=== PATIENT | male | born 1950 | race Caucasian/White ===

== ENCOUNTER 2018-11-17 04:47 | Inpatient (IN) ==
--- NOTE | 2018-11-03 13:24 | Anesthesiology Consultation ---
Date of Service November 03, 2018 Assessment & Plan (1) Encounter for pre-operative examination: Chart Review Chart Review: Acceptable Risk for Surgery (Pending surgeon-ordered PCP preop evaluation ([facility]; 11/10)) and Patient seen in Pre Admission Testing Teaching & Discussion Pre-Anesthesia Teaching/Discussion Notes: Instructed NPO after midnight before surgery,except medications with 15 cc of water. Medication instructions provided according to the PAT guidelines. History Surgery Operation Date: 11/17/18 15:00 Proposed Procedures p Right Total Knee Arthroplasty - Patrick Zaragoza DO Height/Weight Height: 5 ft 10.5 in Weight: 94 kg Allergies Allergy/AdvReac Type Severity Reaction Status Date / Time No Known Allergies Allergy Verified 10/29/18 15:30 Medications Home Medications Medication Instructions Recorded Confirmed Last Taken No Known Home Medications 10/29/18 10/29/18 Unknown Past Medical History Medical History Osteoarthritis Past Surgical History Surgical History History of colonoscopy Past Anesthesia History No Hx of Anesthesia Complications and No Family Hx of Anesthesia Complications History of PONV No Motion Sickness Screening History of Motion Sickness: No Social History Smoking Status: Current some day smoker tobacco type: cigarettes Smoking cigarettes per day: <1/4 PPD; INTERMITTENT USE X 50 YEARS Do You Dip or Chew Tobacco: No Hx Alcohol Use: Yes Alcohol type: other alcohol intake frequency: a few times a month Hx Substance Use: No substance use type: does not use Exercise / Class Metabolic Activity II 4-5 Yardwork/Stairs/Walk up hill Review of Systems Patient denies chest pain, shortness of breath, dyspnea on exertion, reflux, cough, wheezing, palpitations. Physical Exam Vital Signs VITALS BP 135/82 P 98 TEMP 98.5 SP02 94%RA RESP 18 PHYSICAL Full neck and c-spine range of motion. Full TMJ range of motion. TMD 3 finger breaths Mallampati Score 4 (small oral opening) Dentition: intact, lower right bridge to be replaced 11/05 (surgeon made aware), several caps all over Lungs: clear throughout to auscultation Cardiac: regular rate and rhythm, no murmurs noted Spine: normal Carotid arteries: negative bruit Extremities: no edema Testing Electrocardiogram Date: 03/25/19 NSR at 86bpm. Prolonged QT* Chest X-Ray Date: 11/03/18 Findings: + NAD Laboratory Results 11/03/18 13:30 Blood Type O Negative 11/03/18 13:30 Antibody Screen NEGATIVE 11/03/18 13:30 PT 11.3 Seconds (9.0-12.0) 11/03/18 13:30 INR 1.1 (0.9-1.1) 11/03/18 13:30 APTT 26.8 Seconds (21.0-31.0) 11/03/18 13:30 Hemoglobin A1c 5.8 % (4.5-5.6) H 11/03/18 13:30 Urine Color [place] 11/03/18 Unknown Urine Appearance Cloudy (Clear) H 11/03/18 Unknown Urine pH 5.0 (4.5-7.5) 11/03/18 Unknown Ur Specific [place] 1.033 (1.000-1.030) H 11/03/18 Unknown Urine Protein Trace (Negative) H 11/03/18 Unknown Urine Glucose (UA) Negative (Negative) 11/03/18 Unknown Urine Ketones Trace (Negative) H 11/03/18 Unknown Urine Nitrite Positive (Negative) H 11/03/18 Unknown Ur Leukocyte Esterase 1+ (Negative) H 11/03/18 Unknown Urine WBC (Auto) 1-5 /hpf (0-5) 11/03/18 Unknown Urine RBC (Auto) 5-10 /hpf (0-4) H 11/03/18 Unknown U Hyaline Cast (Auto) 1-5 /lpf (0-5) 11/03/18 Unknown U Epithel Cells (Auto) >30 /lpf (0-5) H 11/03/18 Unknown Urine Bacteria (Auto) Negative (Negative) 11/03/18 Unknown
--- NOTE | 2018-11-03 13:55 | XRay Report ---
XR chest Pre-admission PA/Lat CLINICAL HISTORY: Preoperative chest COMPARISON STUDY: No previous studies for comparison. FINDINGS: The cardiac and mediastinal contours are normal. There is no evidence of focal pulmonary co nsolidation. There is no evidence of failure. No pleural effusions are visualized.[ IMPRESSION: No active disease in the chest. Electronically signed by: Rudi Bustos M.D. 11/03/2018 1:54 PM
[2018-11-03 14:56] LABS: Basophils # (auto) 0.02 K/uL (0-0.2); Basophils % (auto) 0.3 %; Eosinophils # (auto) 0.12 K/uL (0-0.5); Eosinophils % (auto) 1.8 %; Hematocrit (blood only) 48.9 % (42-52); Hemoglobin 16.3 g/dL (14.0-18.0); Immature Granulocytes # (auto) 0.01 K/uL (0.00-0.02); Immature Granulocytes % (auto) 0.2 %; Lymphocytes % (auto) 30.3 %; Mean Corpuscular Hgb Conc 33.3 g/dL (32-36); Mean Corpuscular Volume 109.2 fL (80-100); Mean Platelet Volume 10.5 fL (7.4-10.4); Monocytes # (auto) 0.43 K/uL (0.11-0.59); Monocytes % (auto) 6.5 %; Neutrophils # (auto) 4.01 K/uL (1.4-6.5); Neutrophils % (auto) 60.9 %; Platelet Count 132 K/uL (130-400); RDW Coefficient of Variation 12.6 % (11.5-14.5); RDW Standard Deviation 50.4 fL (36.4-46.3); Red Blood Count 4.48 M/uL (4.7-6.1); White Blood Count 6.59 K/uL (4.8-10.8)
[2018-11-03 15:06] LABS: INR 1.1 (0.9-1.1); Partial Thromboplastin Time 26.8 Seconds (21.0-31.0); Prothrombin Time 11.3 Seconds (9.0-12.0)
[2018-11-03 15:11] LABS: Appearance Urine Cloudy (Clear); Bacteria Urine Automated Negative (Negative); Bilirubin Urine 2+ (Negative); Blood Urine Negative (Negative); Color Urine Orange; Epithelial Cell Urine Auto >30 /lpf (0-5); Glucose Urine UA Negative (Negative); Ketones Urine Trace (Negative); Leukocyte Esterase Urine 1+ (Negative); Nitrite Urine Positive (Negative); Protein Urine Trace (Negative); Specific Gravity Urine 1.033 (1.000-1.030); Urobilinogen Urine Negative (Negative)
[2018-11-03 15:13] LABS: Ictotest Urine Positive (Negative)
[2018-11-03 15:16] LABS: Estimated Average Glucose 120 mg/dl; Hemoglobin A1C 5.8 % (4.5-5.6)
[2018-11-03 15:22] LABS: Mucus Urine Present (None Prsent)
--- NOTE | 2018-11-16 10:33 | History & Physical Report ---
Date of Service November 16, 2018 Assessment & Plan (1) Degenerative joint disease of knee: I have indicated the patient for right total knee replacement. The risks, benefits and complications of surgery were explained to the patient which include but not limited to infection, acute blood loss, DVT/PE, injury to nerves, vessels, bone, soft tissue, arthrofibrosis, chronic pain, failure of the prosthesis, knee dislocation, leg length discrepancy, need for additional surgery, cardiac and pulmonary events and . The patient wished to proceed with surgery and informed consent was obtained at this time. We will plan for ASA 325mg BID post-operatively for DVT prophylaxis. Upon discharge the patient will be discharged home with home health services. Appropriate clearances by PCP were obtained. History of Present Illness Chief Complaint: Right knee pain/djd Primary Care Provider: Yordy Mosqueda The patient is a 68 year old male who presents with complaints of severe right knee pain and DJD. The patient has failed outpatient conservative treatments to this point which included NSAIDs, IA hyruonic and corticosteroid injections, jesús e exercise, walking program. The patient's pain and limited function have progressed to the point where they severely hinder their activities of daily living and they no longer tolerate exercise programs. They are requesting to proceed with total knee replacement surgery. Allergies Allergy/AdvReac Type Severity Reaction Status Date / Time No Known Allergies Allergy Verified 11/17/18 05:28 Home Medications Home Medications Medication Instructions Recorded Confirmed Type No Known Home Medications 10/29/18 11/17/18 History Past Med/Surg History Medical History Osteoarthritis Surgical History History of colonoscopy Social History Preferred Language: Kiswahili Communication Ability: Effective Field Operations Manager Required: No Beliefs That Will Affect Care: None Current Living Situation: Alone Other Information That Helps Us Care for You: No Feels Safe at Home: Yes Safety Concerns: Feels Safe At This Time Smoking Status: Current some day smoker Hx Alcohol Use: Yes Hx Substance Use: No Physical Exam Physical Exam: RLE NVSI +EHL/FHL/TA/GS SILT grossly, +2 DP pulse, compartments soft NT, painful ROM 0-130 with crepitus. Genu varum. Constitutional: WD/WN, vitals as above Eyes: PERRL, conjunctivae normal, anicteric sclerae ENMT: external ear and nose normal, oropharynx normal Neck: trachea midline, no thyromegaly Respiratory: normal respiratory effort, lungs clear to auscultation Cardiovascular: RRR, no murmur, no edema Gastrointestinal (Abdomen): normal bowel sounds, soft, nontender, no hepatosplenomegaly Musculoskeletal: no cyanosis or clubbing, extremities motor strength 5/5 Skin: no rashes, warm and dry Neurologic: patellar DTR's 2+ bilat, sensation intact Psychiatric: A+Ox3, euthymic affect Lymphatic: no cervical or axillary lymphadenopathy Results & Data Diagnostic Findings Multiple views of the knee demonstrates severe tricompartmental DJD with complete loss of the medial joint space. +osteophytes, +sclerosis, +subchondral cysts.
[2018-11-17] MEDS ORDERED: CeleBREX 200 MG CAP PO SCH (06:00)
[2018-11-17] MEDS ORDERED: TRANEXAMIC ACID 1,000 MG **IV Pre-op IV SCH (06:00)
[2018-11-17] MEDS ORDERED: CEFAZOLIN 2000MG 2,000 MG/15 ML SYR IV SCH (06:00)
[2018-11-17] MEDS ORDERED: ACETAMINOPHEN 500 MG TAB PO SCH (06:00)
[2018-11-17] MEDS ORDERED: METOCLOPRAMIDE HCL 10 MG TABLET PO SCH (06:00)
[2018-11-17] MEDS ORDERED: FAMOTIDINE 20 MG TAB PO SCH (06:00)
[2018-11-17] MEDS ORDERED: dexAMETHasone 4 MG TAB PO SCH (06:00)
[2018-11-17] MEDS ORDERED: LR 500ML BOLUS, THEN 15ML/HR IV SCH (06:00)
[2018-11-17] MEDS ORDERED: BUPIVACAINE 0.5 % 5 MG/1 ML PF 10ML VIAL ONE (06:26)
[2018-11-17] MEDS ORDERED: ROPIVACAINE 0.5% 5 MG/ML 30 ML VIAL ONE (06:26)
[2018-11-17] MEDS ORDERED: MIDAZOLAM HCL 1 MG/ML 2ML VIAL ONE ×2 (06:40→08:15)
[2018-11-17] MEDS ORDERED: PROPOFOL IV EMULSION 10 MG/ML 20 ML VIAL IV ONE (06:40)
[2018-11-17] MEDS ORDERED: LIDOCAINE HCL 2% 2 ML VIAL/AMP(20MG/ML) INFIL ONE (06:40)
[2018-11-17] MEDS ORDERED: fentaNYL citrate 100 MCG/2 ML VIAL ONE (06:41)
[2018-11-17] MEDS ORDERED: POVIDONE-IODINE OP SOLN 30 ML BTL ONE (06:42)
[2018-11-17] MEDS ORDERED: BACITRACIN INJ 50,000 UNIT VIAL ONE (06:42)
[2018-11-17] MEDS ORDERED: ePHEDrine sulfate 50 MG/ML AMP IV PRN (06:48)
[2018-11-17] MEDS ORDERED: ATROPINE SULFATE 0.1 MG/ML 10ML SYR IV PRN (06:48)
--- NOTE | 2018-11-17 06:49 | History & Physical Bridge Note ---
Date of Service November 17, 2018 History & Physical Bridge Note I have examined the patient, reviewed the History & Physical and in the interval since the performance of the History & Physical I have noted the following changes of clinical significance: no changes noted
[2018-11-17] MEDS: ORTHO JOINT ANESTHETIC ONE ×2 (07:55→15:44)
[2018-11-17] MEDS ORDERED: ROPIVACAINE 0.5% HCL/PF 150 MG, BUPIVACAINE 0.5% MPF 30 ML, EPINEPHrine 30MG/30ML (OR U... INFIL SCH (08:00)
[2018-11-17] MEDS: TRANEXAMIC ACID 1,000 MG **IV Intra-op IV SCH ×2 (08:40→10:55)
--- NOTE | 2018-11-17 08:42 | Post Operative Brief Note ---
Immediate Post Op Note v1 Date of Surgery November 17, 2018 Pre & Post Diagnosis Operation Date: 11/17/18 07:00 Pre-Op Diagnosis: RIGHT KNEE OSTEOARTHRITIS Post-Op Diagnosis: RIGHT KNEE OSTEOARTHRITIS Procedure Operation Date: 11/17/18 07:00 Actual Procedures p Right Total Knee Arthroplasty(Right) - Patrick Zaragoza DO Surgeon Patrick Zaragoza DO Core Placer Norman Pope Estimated Blood Loss 45 Findings Consistent with Post-Op Diagnosis Fluids 1500 cc LR Specimens proximal tibia, distal femur bone fragments Anesthesia Type Spinal MAC Complications none Disposition Disposition: Recovery Room Overlapping Procedure I was present for: the critical portions of procedure. I was immediately available: during the entire case. Back up surgeon: was not required during procedure.
--- NOTE | 2018-11-17 09:00 | Operative Report ---
Post Operative Report Pre & Post Diagnosis Operation Date: 11/17/18 07:00 Pre-Op Diagnosis: RIGHT KNEE OSTEOARTHRITIS Post-Op Diagnosis: RIGHT KNEE OSTEOARTHRITIS Procedure Operation Date: 11/17/18 07:00 Actual Procedures p Right Total Knee Arthroplasty(Right) - Patrick Zaragoza DO Surgeon Patrick Zaragoza DO Firer Retort Norman Pope Estimated Blood Loss 45 Findings Consistent with Post-Op Diagnosis Fluids 1500 cc LR Specimens proximal tibia, distal femur bone fragments Anesthesia Type Spinal MAC Complications none Disposition Disposition: Recovery Room Indications The patient is a 68-year-old male presents with long history of severe right knee tricompartmental DJD and failed outpatient conservative treatments including NSAIDs, bracing, injections and home walking/exercise program. The patient's symptoms have progressed to the point where it has been difficult to perform normal activities of daily living. I have indicated the patient for a right total knee arthroplasty, the risks and benefits and complications of the procedure include but are not limited to infection bleeding damage to bone, nerves, vessels, surrounding soft tissue, blood clots, loss of function, leg length discrepancy, dislocation, failure of the components, need for additional surgery and . The patient wished to proceed with surgery at this time and informed consent was obtained. Appropriate clearances were obtained. Description of Procedure Following induction of spinal anesthesia, a tourniquet was applied to the proximal aspect of the thigh and the patient's right leg was prepped and draped in the usual sterile manner. A timeout was performed, patient identified and site south confirmed. Appropriate pre-operative IV antibiotics were given. The limb was exsanguinated with an Esmarch bandage and tourniquet was inflated to 300 mmHg. A longitudinal midline incision was made over the anterior knee. Subcutaneous tissue was sharply dissected down to fascia. Electrocautery was used for hemostasis. Next a parapatellar arthrotomy was performed. Patella was everted and the knee was flexed. A Brooks retractor was used to expose the synovium above on the anterior aspect of the femur and removed down to bone. Next, the anterior fat pad was removed to aid in visualization. The medial face of the tibia was cleared of soft tissue first with a Bovie and a strickland elevator. This tissue was retracted posteriorly using a blunt Hohmann. Next, the extra-medullary tibial cutting guide was placed to the anterior aspect of the tibia. The tibia resection level was set taking 2mm from the defective tibial condyle. Resection depth was once again confirmed with berny wing. The medial and lateral collateral ligament was protected with two Hohmann retractors. The tibia guide was removed and proximal tibial bone fragment removed utilizing straight osteotome, electrocautery and Florentin. Next, the distal femur intramedullary canal was accessed utilizing the step drill. The intramedullary distal femur cutting guide was placed into the canal and pinned into place. The distal femur was cut on the 5 degree +2 setting. Next the cutting guide was removed and the femur was sized. Care was taken to ensure appropriate citrus fruit packer all rotation and 3 degree holes were drilled. A size 9 4-in-1 cutting block was placed on the distal end of the femur and secured into place with two short headed screws. Two bent Hohmann retractors were placed to protect the medial and lateral collateral ligaments. The oscillating saw was used to cut anterior, posterior, anterior chamfer and posterior chamfer. The four and one cutting block was removed and bone fragments excised. Laminar banking services advisor was placed laterally and the ACL and PCL were removed followed by the medial meniscus and posterior medial osteophytes. Aquamantys was utilized for any posterior medial bleeders and Orthomix injected into the posterior medial capsule. A laminar banking services advisor was then placed in the medial compartment and the lateral meniscus and posterior osteophytes were removed. Aquamantys was utilized for any posterior lateral bleeders and Orthomix injected into the posterior lateral capsule. Next, drop dario and spacer block were placed with the leg in flexion and extension to assess alignment and flexion/extension gaps. Next, the proximal tibia was assessed and two bent Hohmans were placed medial and lateral to aid in visualization. The appropriate tibia size and rotation was selected and a size G tibial plate was pinned into place with appropriate rotation. Preparation of the tibia was completed utilizing the matching tibial drill and broach. I then turned my attention back to the distal femur in a trial femoral component was impacted into place. Appropriate femoral width was assessed and selected. Next the femur PS box cut guide was placed and cut made with the reciprocal saw and the PS box provisional placed. A trial size 12 tibia articular tray was placed and varus-valgus balance assessed in 0 degrees of extension and 30, 60 and 90 degrees of flexion, sequential increase in tibial articular tray size was performed. A final tibial articular surface size 14 was chosen. Assess was gained to the patella and caliper utilized to measure width. The patella reamer was utilized and remaining bone removed with oscillating saw. A size 31 asymmetric patella button was selected and the patella pegs drilled. Trial patella button was placed and tracking was assessed. The knee was found to be well balanced, well aligned with excellent patella tracking. The trials were removed and final components were obtained and assembled. The knee was irrigated copiously with sterile saline solution mixed with bacitracin. Access to the proximal tibia was once again obtained utilizing to the Hohmans and the proximal tibia and distal femur were dried with lap sponges. The final components were cemented into place and all excess cement was removed. A trial tibial articular surface was placed while cemented hardened. Knee stability was once again assessed and the final component inserted. The knee was injected with the remaining Orthomix which includes a combination of Ropivicaine 0.5% 150mg, Bupivicaine 0.5%/Epinephrine 1:200,000 30ml, Toradol 30mg, Dexamethasone 4mg, Ketamine 10mg, Clonidine 100mcg and NSS 30ml solution and irrigated once more with sterile saline solution mixed with bacitracin. The capsulotomy was closed with #1 Vicryl followed by subcutaneous closure with 2-0 Vicryl suture and a 3-0 V-lock suture. Skin closure was performed using Prineo dressing followed by Migue, 4 x 4s and filippo wrap. Tourniquet was deflated at 102 minutes. The patient tolerated the procedure well and was taken to the PACU in stable condition. Due to the complex nature of the procedure, the entire surgery was performed with the operational assistance of Norman Pope PA-C. The seismic survey assistant, under direct supervision, was involved in the actual performance of all aspects of the surgical procedure including patient positioning, hemostasis, tissue retraction, instrument management and wound closure. I attest to the content of the Intraoperative Record and any orders documented therein. Any exceptions are noted below.
--- NOTE | 2018-11-17 09:45 | XRay Report ---
XR knee RT 2V routine CLINICAL HISTORY: Surgical Post Op postoperative evaluation COMPARISON: None. DISCUSSION: Anatomic alignment post total right knee arthroplasty. Good contact between prosthetic an d underlying bone. Expected postoperative soft tissue change IMPRESSION: Anatomic alignment post total right knee arthroplasty. The above report was generated using voice recognition software. It may contain grammatical, syntax or spelling errors. Electronically signed by: Lincoln Gamble M.D. 11/17/2018 9:44 AM
--- NOTE | 2018-11-17 09:53 | Anesthesiology Progress Note ---
Date of Service November 17, 2018 Anesthesia Post Procedure Vital Signs Vital Signs: Temp Pulse Pulse Resp BP Pulse Ox 11/17/18 09:40 36.5 C 90 19 140/82 95 11/17/18 09:30 88 21 131/80 97 11/17/18 09:23 36.3 C L 93 H 18 126/75 97 11/17/18 05:30 36.8 C 76 20 139/94 97 Notes Mental Status: alert / awake / arousable Patient Amnestic to Procedure: Yes Nausea / Vomiting: adequately controlled Pain: adequately controlled Airway Patency, RR, SpO2: stable & adequate BP & HR: stable & adequate Hydration State: stable & adequate Anesthetic Complications: no major complications apparent and Pt Satisfied with anesthetic care
[2018-11-17] MEDS ORDERED: HYDROmorphone INJ 0.5 MG/0.5 ML SYR IV PRN (10:10)
[2018-11-17] MEDS ORDERED: OXYCODONE HCL IR 5 MG TAB (IMMEDIATE RELEASE) PO PRN (10:10)
[2018-11-17] MEDS ORDERED: NALOXONE HCL 0.4 MG/1 ML VIAL/CARP IV PRN (10:10)
[2018-11-17] MEDS ORDERED: ONDANSETRON INJ 2 MG/ML 2 ML VIAL IV PRN (10:10)
[2018-11-17] MEDS ORDERED: BISACODYL 10 MG SUPP PR PRN (10:10)
[2018-11-17] MEDS ORDERED: METOCLOPRAMIDE HCL INJ 5 MG/ML 2 ML VIAL IV PRN (10:10)
[2018-11-17] MEDS ORDERED: MAGNESIUM HYDROXIDE SUSP 30 ML UDC PO PRN (10:10)
[2018-11-17] MEDS: MULTIVITAMIN TAB PO SCH (10:56)
[2018-11-17] MEDS: SODIUM CHLORIDE 0.9% 1000ML 1,000 ML IV SCH ×2 (10:56→21:10)
[2018-11-17] MEDS: DOCUSATE SODIUM 100 MG CAP PO SCH ×2 (10:56→20:46)
[2018-11-17] MEDS: KETOROLAC TROMETHAMINE 15 MG/ML VIAL IV SCH ×3 (10:57→22:00)
[2018-11-17] MEDS: CEFAZOLIN 2000MG 2,000 MG/15 ML SYR IV SCH ×2 (14:05→22:01)
[2018-11-17] MEDS: ACETAMINOPHEN 500 MG TAB PO SCH ×2 (14:05→22:00)
--- NOTE | 2018-11-17 16:53 | Orthopedic Progress Note ---
Date of Service November 17, 2018 Assessment & Plan (1) Degenerative joint disease of knee: s/p R TKA -ancef x 24 -DVT ppx - SCDs, TEDS, ASA BID -WBAT RLE -PT/OT -PO XR - well aligned well fixed prothesis without fracture/dislocation -am labs -DC planning - Home with HH Subjective Post Operative Progress Note Patient seen sitting up in bed, comfortable, denies complaints, pain well controlled, no acute issues. Physical Exam Vital Signs (Past 24 Hours): Last Vital Signs Temp 36.8 C 11/17/18 15:05 Pulse 91 H 11/17/18 15:05 Resp 18 11/17/18 15:05 BP 143/79 H 11/17/18 15:05 Pulse Ox 93 11/17/18 15:05 Physical Exam: Limited secondary to patient spinal anesthesia slowly wearing off, +2DP pulse, SILT grossly, decreased motor strength TA/EH, compartments soft NT, dressing CDI Constitutional: WD/WN, vitals as above
[2018-11-17] MEDS ORDERED: SENNA 8.6 MG TAB PO SCH (21:00)
[2018-11-18] MEDS: KETOROLAC TROMETHAMINE 15 MG/ML VIAL IV SCH (04:38)
[2018-11-18 06:04] LABS: Hematocrit (blood only) 39.2 % (42-52); Hemoglobin 13.5 g/dL (14.0-18.0); Mean Corpuscular Hgb Conc 34.4 g/dL (32-36); Mean Corpuscular Volume 105.7 fL (80-100); RDW Coefficient of Variation 12.5 % (11.5-14.5); RDW Standard Deviation 48.3 fL (36.4-46.3); Red Blood Count 3.71 M/uL (4.7-6.1); White Blood Count 9.86 K/uL (4.8-10.8)
[2018-11-18] MEDS: ACETAMINOPHEN 500 MG TAB PO SCH ×2 (06:18→14:15)
[2018-11-18 06:23] LABS: BUN Creatinine Ratio 28.8 (10-20); Calcium 8.2 mg/dl (8.5-10.1); Creatinine Clr Calc Pharmacy 145.7 ml/min; Est GFR (African American) 122.4; Est GFR (Non-African American) 105.6; Potassium 3.7 mmol/L (3.5-5.1)
[2018-11-18 06:26] LABS: Mean Platelet Volume 10.2 fL (7.4-10.4); Platelet Count 96 K/uL (130-400); Platelet Estimate Decreased (Normal)
--- NOTE | 2018-11-18 08:04 | Orthopedic Progress Note ---
Date of Service November 18, 2018 Assessment & Plan (1) Degenerative joint disease of knee: R TKA POD#1 -ancef x 24 -DVT ppx - SCDs, TEDS, ASA BID -WBAT RLE -PT/OT -am labs - Hgb 13.5 -DC planning - Home with HH -If patient is progressing well with his physical therapy plan for discharge to home today. Patient seen and examined, agree with above assessment and plan. Subjective Post operative progress note Patient is lying in bed currently. He is awake and alert and without complaints. He did state that he did not sleep well. Pain is controlled at the present time and he does state that he has some mild discomfort over the top of the knee. He also states that he had trouble moving his right foot after the surgery and in the evening however that has returned and he is not having any problems with dorsiflexion or plantarflexion. He denies shortness of breath, chest pain, lightheadedness. He states he is having home health services upon discharge and is hoping to go home today. Physical Exam Vital Signs (Past 24 Hours): Last Vital Signs Temp 36.5 C 11/18/18 07:21 Pulse 80 11/18/18 07:21 Resp 17 11/18/18 07:21 BP 143/83 H 11/18/18 07:21 Pulse Ox 95 11/18/18 07:21 Physical Exam: Dressings are clean, dry, and intact. Calves are soft nontender. Neurovascular is intact. Toes are mobile. He has good dorsiflexion and plantarflexion of the right foot. RLE NVSI +EHL/FHL/TA/GS SILT grossly, +2 DP pulse, compartments soft NT, dressing cdi.
--- NOTE | 2018-11-18 08:08 | Anesthesiology Progress Note ---
Date of Service November 18, 2018 Anesthesia Post Procedure Vital Signs Vital Signs: Temp Pulse Pulse Pulse Pulse Resp BP 11/18/18 07:21 36.5 C 80 17 143/83 H 11/18/18 03:27 36.8 C 86 16 147/83 H 11/17/18 23:14 36.6 C 100 H 16 151/87 H 11/17/18 19:35 36.7 C 97 H 18 136/77 11/17/18 15:05 36.8 C 91 H 18 143/79 H 11/17/18 12:55 84 16 134/80 11/17/18 11:58 78 16 155/93 H 11/17/18 11:03 73 16 152/91 H 11/17/18 10:30 73 16 146/96 H 11/17/18 10:00 36.6 C 82 20 113/83 11/17/18 09:50 85 15 133/79 11/17/18 09:40 36.5 C 90 19 140/82 11/17/18 09:30 88 21 131/80 11/17/18 09:23 36.3 C L 93 H 18 126/75 Pulse Ox 11/18/18 07:21 95 11/18/18 03:27 95 11/17/18 23:14 97 11/17/18 19:35 94 11/17/18 15:05 93 11/17/18 12:55 96 11/17/18 11:58 94 11/17/18 11:03 97 11/17/18 10:30 95 11/17/18 10:00 2 L 11/17/18 09:50 93 11/17/18 09:40 95 11/17/18 09:30 97 11/17/18 09:23 97 Pain Intensity Right Knee: Pain Intensity: 0 Notes Mental Status: alert / awake / arousable and participated in evaluation Patient Amnestic to Procedure: Yes Nausea / Vomiting: adequately controlled Pain: adequately controlled Airway Patency, RR, SpO2: stable & adequate BP & HR: stable & adequate Hydration State: stable & adequate Neuraxial Anesthesia: was administered and sensory block resolved Anesthetic Complications: no major complications apparent and Pt Satisfied with anesthetic care
[2018-11-18] MEDS: MULTIVITAMIN TAB PO SCH (08:48)
[2018-11-18] MEDS: DOCUSATE SODIUM 100 MG CAP PO SCH (08:48)
[2018-11-18] MEDS ORDERED: ASPIRIN 325 MG ECTAB PO SCH (09:00)
[2018-11-18] MEDS ORDERED: CeleBREX 200 MG CAP PO SCH (21:00)
--- NOTE | 2018-11-18 23:18 | Discharge Summary ---
Date of Service November 18, 2018 Admission HPI Per Admitting Provider The patient is a 68 year old male who presents with complaints of severe right knee pain and DJD. The patient has failed outpatient conservative treatments to this point which included NSAIDs, IA hyruonic and corticosteroid injections, home exercise, walking program. The patient's pain and limited function have progressed to the point where they severely hinder their activities of daily living and they no longer tolerate exercise programs. They are requesting to proceed with total knee replacement surgery. Principal Diagnosis Right total knee replacement Discharge Exam RLE NVSI +EHL/FHL/TA/GS SILT grossly, +2 DP pulse, compartments soft NT, dressing cdi. Constitutional WD/WN, vitals as above Eyes PERRL, conjunctivae normal, anicteric sclerae ENMT external ear and nose normal, oropharynx normal Neck trachea midline, no thyromegaly Respiratory normal respiratory effort, lungs clear to auscultation Cardiovascular RRR, no murmur, no edema Gastrointestinal (Abdomen) normal bowel sounds, soft, nontender, no hepatosplenomegaly Musculoskeletal no cyanosis or clubbing, extremities motor strength 5/5 Skin no rashes, warm and dry Neurologic patellar DTR's 2+ bilat, sensation intact Psychiatric A+Ox3, euthymic affect Lymphatic no cervical or axillary lymphadenopathy Discharge Data Allergies Allergy/AdvReac Type Severity Reaction Status Date / Time No Known Allergies Allergy Verified 11/17/18 05:28 Consultations 11/17/18 10:10 Consult Case Management - Discharge Planning Routine Procedures Performed Operation Date: 11/17/18 07:00 Actual Procedures p Right Total Knee Arthroplasty(Right) - Patrick Zaragoza DO Ordered Studies 11/17/18 05:00 US - OR guided needle placemen Routine Hospital Course (1) Degenerative joint disease of knee: The patient is a 68 -year-old male who presents with long standing history of s evere right knee DJD and failed outpatient conservative treatments including NSAIDs, bracing, injections and home walking/exercise program. The patient's symptoms have progressed to the point where it has been difficult to perform even normal activities of daily living. I indicated the patient for a right total knee arthroplasty, the risks, benefits and complications of the procedure include but not limited to infection, bleeding, damage to bone, nerves, vessels, surrounding soft tissue, may develop blood clots, loss of function, leg length discrepancy, dislocation, failure of the components, loosening of the components, the need for additional surgery and . The patient wished to proceed with surgery at this time and informed consent was obtained. Hospital Course: On 11/17/18 the patient was taken to the operating room, adequate anesthesia administered and underwent a right total knee arthroplasty. The patient tolerated the procedure well and was taken to the PACU in stable condition. Post-operatively the patient was started on a DVT ppx medication and given appropriate IV antibiotics. Consults were placed to physical therapy, occupational therapy and case management. On POD#1, the patient did well overnight and their pain was well controlled. Labs were drawn and the Hgb was 13.5. The patient progressed well with PT. Dressings were changed at this time and the incision was clean, dry and intact. The patients hospital stay was relatively uneventful and they were deemed stable by the orthopedic team and consultants to be discharged home with HH on 11/18/18. Discharge Instructions: Upon discharge the patient may weight bear as tolerates through their operative extremity. They were instructed to keep the incision clean and dry at all times. The patient may shower but should not submerge the incision, avoid bathing, pools and hot tubes. The patient was given a script for pain medication and should take as instructed. The patient was given a script for DVT ppx ASA 325 BID and should take as directed. The patient was instructed to not drive or travel for long distances until cleared to do so. If the patient develops any symptoms of fevers, chills, nausea, vomiting, increased redness, swelling, pain or drainage from the surgical site, they should notify the office and/or proceed to the nearest emergency room. The patient should follow up in 10-14 days after surgery for their routine post-operative follow-up appointment and should call the office to confirm the date and time. R TKA POD#1 -ancef x 24 -DVT ppx - SCDs, TEDS, ASA BID -WBAT RLE -PT/OT -am labs - Hgb 13.5 -DC planning - Home with HH -If patient is progressing well with his physical therapy plan for discharge to home today. Patient seen and examined, agree with above assessment and plan. Total Time Total Time Spent Total Time Spent (In Minutes): >60 minutes Total Time Includes: Examination of the Patient, Discharge Planning, Medication Reconciliation and Communication With Other Providers Discharge Plan Discharge Items Patient Disposition: Home - Home Health Services Reason For Visit: RIGHT KNEE OSTEOARTHRITIS Discharge Diagnosis: Right total knee replacement Condition: Good Discharge Goals: Decrease discomfort, Improve disease control, Improve function, Increase independence and Therapeutic intervention Activity: Per 'Additional Instructions' section Lifting: Wait until after follow-up appointment Bathing Comment: No bathing, pools or hot tubs Sexual Activity: Wait until after follow-up appointment Exercise/Sports: Wait until after follow-up appointment Driving/Machine Use Comment: No driving till cleared by your surgeon Weightbearing: Right weightbearing Non-emergency contact: Primary Care Provider and Surgeon Call non-emergency contact if: you have any medication questions, your symptoms worsen, your pain is not controlled, your pain is worsening, your pain is unusual for you, your pain is concerning for you, you have a fever, your temperature is above 101, your wound has increased redness, your wound has increased drainage and your wound pain has increased Follow-up/Referrals: Yordy Mosqueda M.D. [Primary Care Provider] - Diet: Regular Addtl Provider Instructions: ACTIVITY RECOMMENDATIONS: SELF CARE INSTRUCTIONS AFTER TOTAL KNEE REPLACEMENT A. You may need to continue a physical therapy program after discharge from the hospital. There are several options available to you. Your doctor will assist you in selecting the best one for you. 1. An out-patient facility 2 to 3 times a week for therapy or home therapy. 2. Continue working on all exercises taught to you in the hospital. Your goals should be to increase bending of your knee to 90 degrees and beyond and to fully straighten your knee. B. You may progress at your own pace from walking with a walker or crutches to a cane; then to no assistive devices. C. Make walking a part of your daily routine. Be up as much as comfortable with rest periods throughout the day. Rest with leg elevation is very important. Use the ice wrap frequently for the first 3-4 weeks. D. There are no restrictions on activities. You may ride in a car, shop, participate in transitions rn care coordinator and all social activities. E. Wear the long elastic stockings (THI hose) 20 hours a day for 2 weeks after surgery. They can be removed several times a day for laundering and for a bath. F. You may shower, no tub baths until cleared by your doctor. SPECIAL CARE INSTRUCTIONS: VERY IMPORTANT TO READ AND REVIEW A. There are a few signs you need to watch for after you are home. Call [facility] if you notice any of the followin. Increased severe knee pain. Some pain is expected especially when you exercise. 2. Increased swelling in your leg or knee; pain or swelling of the calf muscle in either lower leg. 3. Any fluid drainage from the incision. 4. Shortness of breath or chest pain. B. Please call [facility] at if you have any concerns or questions about your operation or recovery. The doctor or his nurse will return your call promptly. C. You must take antibiotics before dental work, bladder, bowel or other surgery. Your doctor will provide you with a permanent care to carry describing this precaution. IMPORTANT: * REMEMBER TO TAKE ASPIRIN, 325 MG, TWICE DAILY FOR 4 WEEKS UNLESS OTHERWISE DIRECTED. THIS IS YOUR BLOOD THINNER. * HIGH RISK PATIENTS MAY BE PRESCRIBED A STRONGER BLOOD THINNER. THIS WILL BE PROVIDED AT DISCHARGE. * CALL IF INCREASED PAIN, REDNESS, DRAINAGE OR FEVER GREATER THAT 101. * WEAR THI HOSE 20 HOURS PER DAY FOR 2 WEEKS. *DERMABOND Prineo- This is a mesh tape dressing that is covered with glue. It should remain in place until the incision is properly healed, usually 10-14 days. This dressing is designed to naturally slough off. You may trim the excess mesh tape as it peels off. Incision may be briefly wet in a shower. Dry immediately by blotting with a clean, dry towel. Do not bath or swim until instructed by your doctor. Do not scratch, rub, or pick at the dressing. Do not apply any topical ointments or lotions until dressing is completely removed and/or instructed by your doctor. There may be a small piece of suture material at one end of your incision. Do not pull or trim this. If it is bothersome or catching on clothing, you may cover it with a band-aid. IF INCISION IS LEAKING THROUGH DRESSING, CALL THE OFFICE . FOLLOW UP VISIT: If appointment is not already scheduled: Please call [facility] to make a follow-up appointment for 2 weeks after your surgery at . Prescriptions: New acetaminophen [Pain Reliever] 500 mg Tablet 1,000 mg PO Q8 PRN (Reason: pain) Qty: 90 RF: 0 aspirin 325 mg Tablet,Delayed Release (Dr/Ec) 325 mg PO BID 28 Days Qty: 56 RF: 0 celecoxib [Celebrex] 200 mg Capsule 200 mg PO BID PRN (Reason: pain) Qty: 28 RF: 0 oxycodone 5 mg Tablet 5 mg PO Q6H MDD 6 tabs PRN (Reason: pain) Qty: 30 RF: 0 sennosides [Senokot] 8.6 mg Tablet 17.2 mg PO HS PRN (Reason: constipation) Qty: 28 RF: 0 Continued No Known Home Medications RF: 0 Stand-Alone Forms: [employer], [facility] [employer]/Other Patient Handouts: Surgery Prevent DVT After Discharge Orders: Discharge Order (Routine); Ordered 11/18/18 Ordered By: Norman Pope Admission Data Admit Date/Time: 11/17/18 09:21 Attending Provider: Patrick Zaragoza Admit Provider: Patrick Zaragoza Primary Care Provider: Yordy Mosqueda Service: Surgical Services Other Interventions: Discharge Summary Assessment (RN) Last Done: 11/18/18 14:04 DC Date/Time DO NOT enter until pt leaves facility: 11/18/18 14:45
== END 2018-11-18 14:45 | disposition home health service (06) | DRG 470 ==
LOC: ASU 04:47 → 3E 09:21

== ENCOUNTER 2020-11-21 10:21 | Inpatient (IN) ==
--- NOTE | 2020-11-03 16:04 | PAT Medication Instructions ---
Medication Instructions Date of Service November 03, 2020 Home Medications escitalopram oxalate 10 mg PO QAM fiber 1 tab PO QAM furosemide 40 mg PO QAM multivitamin 1 tab PO QAM nadolol 20 mg PO QAM sennosides [Senokot] 17.2 mg PO QAM spironolactone 25 mg PO QAM DO NOT take the morning of surgery fiber 1 tab PO QAM furosemide 40 mg PO QAM multivitamin 1 tab PO QAM sennosides [Senokot] 17.2 mg PO QAM spironolactone 25 mg PO QAM Take morning of surgery With a small sip of water, OTHERWISE NOTHING TO EAT OR DRINK AFTER MIDNIGHT: escitalopram oxalate 10 mg PO QAM nadolol 20 mg PO QAM Other Notes If you have any questions please call us at [phone] or [phone] or [phone] or [phone]
--- NOTE | 2020-11-09 13:19 | Anesthesiology Consultation ---
Date of Service November 09, 2020 Assessment & Plan (1) Encounter for pre-operative examination: Chart Review Chart Review: Pending: Refer to Additional Notes / Consult section (pending surgeon ordered PCP clearance and preop Covid testing ) and Patient seen in Pre Admission Testing Awaiting surgeon ordered PCP clearance 11/11/20- did write note re: t hrombocytopenia to PCP to address at preop appt. Also sent pt's coags and liver enzymes (pt has cirrhosis) Pt requests no IV access in back of the hand area Per PAT appt on 11/09/20, pt resides in [facility]- travels to [facility]. Denies any other travel or large group gatherings. No known Covid positive contacts or Covid related symptoms. Wears mask in public. No known Covid infection in the past 90 days. Preop Covid testing scheduled 11/16/20= will await results. Educated on importance of self quarantining, social distancing and wearing mask in public both for the patient and household contacts. Teaching & Discussion Pre-Anesthesia Teaching/Discussion Notes: Instructed NPO after midnight before surgery,except medications with 15 cc of water. Medication instructions provided according to the PAT guidelines. History Surgery Operation Date: 11/21/20 08:40 Proposed Procedures p Left Total Knee Arthroplasty - Patrick Zaragoza DO Height/Weight Height: 5 ft 8 in Weight: 69.6 kg Allergies Allergy/AdvReac Type Severity Reaction Status Date / Time No Known Allergies Allergy Unverified 11/09/20 13:40 Medications Home Medications Medication Instructions Recorded Confirmed Last Taken escitalopram oxalate 10 mg PO QAM 10/27/20 10/27/20 Unknown fiber 1 tab PO QAM 10/27/20 10/27/20 Unknown furosemide 40 mg PO QAM 10/27/20 10/27/20 Unknown multivitamin 1 tab PO QAM 10/27/20 10/27/20 Unknown nadolol 20 mg PO QAM 10/27/20 10/27/20 Unknown sennosides [Senokot] 17.2 mg PO QAM 10/27/20 10/27/20 Unknown spironolactone 25 mg PO QAM 10/27/20 10/27/20 Unknown Past Medical History Medical History Cirrhosis of liver Follows with [facility]- stable at this time Depression Stable Hypertension Osteoarthritis Exercise / Class Metabolic Activity II 4-5 Yardwork/Stairs/Walk up hill (one flight of stairs - no chest pain or SOB) Past Surgical History Surgical History History of colonoscopy History of esophagogastroduodenoscopy (EGD) History of tooth extraction History of total right knee replacement Past Anesthesia History No Hx of Anesthesia Complications and No Family Hx of Anesthesia Complications History of PONV No Hx of PONV and No Hx of Motion Sickness Social History Smoking Status: Former smoker tobacco type: cigarettes Smoking cigarettes per day: <1/4 PPD; INTERMITTENT USE X 50 YEARS Do You Dip or Chew Tobacco: No Smoking End Date: 11/2018 Hx Alcohol Use: No Alcohol type: other alcohol intake frequency: a few times a month Alcohol Intake Frequency Comment: quit 2 yrs ago Hx Substance Use: Yes substance use type: marijuana Substance Use Type Other:: approx twice a month- had medical marijuana card Review of Systems Patient denies chest pain, shortness of breath, dyspnea on exertion, reflux, cough, wheezing, palpitations. No hx of seizures, stroke, [place], apnea/snoring. No hx of blood clots or blood tra nsfusions Physical Exam Vital Signs VITALS BP 90/50 (pt denies any current dizziness but does have mild dizziness in the AM- pt followed up with PCP after PAT appt- states hypotension is normal for patient- will follow up with PCP 11/11/20) P 46 (pt followed up with PCP after PAT appt- chronic issue- will follow up with PCP 11/11/20) TEMP 97.7 SP02 98% RESP 16 Constitutional no acute distress ENMT Mouth: no TMJ clicking Thyromental Distance: > or= 3.5 Finger Breadths (3.5) Mallampati Class: III Partial plate on lower Remaining teeth capped Neck + limited neck extension (moderate ) Respiratory normal respiratory effort; no respiratory distress Auscultation: lungs clear to auscultation bilaterally; no wheezes Cardiovascular Rate/Rhythm: regular rate and regular rhythm Heart Sounds: no murmur Vessels: no carotid bruit Musculoskeletal Spine: no pain with cervical ROM Extremities: extremities normal to inspection Psychiatric Orientation: alert Testing Laboratory Results 11/09/20 13:41 11/09/20 13:41 PT 13.0 Seconds (9.0-12.0) H 11/09/20 13:41 INR 1.3 (0.9-1.1) H 11/09/20 13:41 APTT 30.3 Seconds (21.0-31.0) 11/09/20 13:41 Urine Color Dark Yellow 11/09/20 Unknown Urine Appearance Clear (Clear) 11/09/20 Unknown Urine pH 5.5 (4.5-7.5) 11/09/20 Unknown Ur Specific [place] 1.016 (1.000-1.030) 11/09/20 Unknown Urine Protein Negative (Negative) 11/09/20 Unknown Urine Glucose (UA) Negative (Negative) 11/09/20 Unknown Urine Ketones Negative (Negative) 11/09/20 Unknown Urine Nitrite Negative (Negative) 11/09/20 Unknown Ur Leukocyte Esterase Negative (Negative) 11/09/20 Unknown Urine WBC (Auto) 1-5 /hpf (0-5) 11/09/20 Unknown Urine RBC (Auto) 5-10 /hpf (0-4) H 11/09/20 Unknown U Hyaline Cast (Auto) 10-30 /lpf (0-5) H 11/09/20 Unknown U Epithel Cells (Auto) 0-5 /lpf (0-5) 11/09/20 Unknown Urine Bacteria (Auto) Negative (Negative) 11/09/20 Unknown Blood Type O Negative 11/09/20 13:41 Antibody Screen NEGATIVE 11/09/20 13:41 Informed surgeon's office of thrombocytopenia and coags AST: 55 ALT: 32 ALK PHOS: 161 Electrocardiogram Date: 11/09/20 Findings: + SB @ (47bpm) Prolonged QT When compared to EKG from November 03, 2018- no significant change per cardio Chest X-Ray Date: 11/09/20 Findings: + NAD
--- NOTE | 2020-11-09 14:06 | XRay Report ---
XR chest Pre-admission PA/Lat CLINICAL HISTORY: Preoperative evaluation. COMPARISON STUDY: Chest radiograph November 03, 2018. FINDINGS: Lung volumes are normal. Lungs are clear. There is no pneumothorax or pleural effusion. Car diac size is normal. Mediastinal contours are normal. There is no evidence for pulmonary edema. IMPRESSION: No acute cardiopulmonary findings. ACT 112: Negative or not required by law. Electronically signed by: Jose Cai M.D. 11/09/2020 2:04 PM
[2020-11-09 14:27] LABS: Basophils # (auto) 0.02 K/uL (0-0.2); Basophils % (auto) 0.4 %; Eosinophils % (auto) 2.2 %; Hematocrit (blood only) 39.1 % (42-52); Hemoglobin 13.5 g/dL (14.0-18.0); Immature Granulocytes # (auto) 0.01 K/uL (0.00-0.02); Immature Granulocytes % (auto) 0.2 %; Lymphocytes # (auto) 1.68 K/uL (1.2-3.4); Lymphocytes % (auto) 37.4 %; Mean Corpuscular Hemoglobin 35.7 pg (25-34); Mean Corpuscular Hgb Conc 34.5 g/dL (32-36); Mean Corpuscular Volume 103.4 fL (80-100); Mean Platelet Volume 9.7 fL (7.4-10.4); Monocytes # (auto) 0.32 K/uL (0.11-0.59); Monocytes % (auto) 7.1 %; Neutrophils # (auto) 2.36 K/uL (1.4-6.5); Neutrophils % (auto) 52.7 %; Platelet Count 104 K/uL (130-400); RDW Coefficient of Variation 15.9 % (11.5-14.5); Red Blood Count 3.78 M/uL (4.7-6.1); White Blood Count 4.49 K/uL (4.8-10.8)
[2020-11-09 14:41] LABS: INR 1.3 (0.9-1.1); Partial Thromboplastin Ratio 1.2; Partial Thromboplastin Time 30.3 Seconds (21.0-31.0)
--- NOTE | 2020-11-09 14:55 | Electrocardiogram Report ---
Test Reason : Blood Pressure : / mmHG Vent. Rate : 047 BPM Atrial Rate : 047 BPM P-R Int : 176 ms QRS Dur : 088 ms QT Int : 592 ms P-R-T Axes : 034 050 054 degrees QTc Int : 523 ms Sinus bradycardia Prolonged QT Abnormal ECG When compared with ECG of 03-NOV-2018 13:27, Vent. rate has decreased BY 39 BPM Confirmed by Isidro Aragon ([id number]) on 11/09/2020 2:55:28 PM Referred By: Patrick Zaragoza Confirmed By:Isidro Aragon
[2020-11-09 15:03] LABS: Appearance Urine Clear (Clear); Bacteria Urine Automated Negative (Negative); Bilirubin Urine Negative (Negative); Blood Urine Trace (Negative); Color Urine Dark Yellow; Epithelial Cell Urine Auto 0-5 /lpf (0-5); Glucose Urine UA Negative (Negative); Ketones Urine Negative (Negative); Leukocyte Esterase Urine Negative (Negative); Nitrite Urine Negative (Negative); Protein Urine Negative (Negative); Specific Gravity Urine 1.016 (1.000-1.030); Urobilinogen Urine Negative (Negative); pH Urine 5.5 (4.5-7.5)
[2020-11-09 16:07] LABS: Albumin Level 2.5 gm/dl (3.4-5.0); BUN Creatinine Ratio 17.3 (10-20); Calcium 8.7 mg/dl (8.5-10.1); Creatinine Clr Calc Pharmacy 68.7 ml/min; Est GFR (African American) 93.5; Est GFR (Non-African American) 80.7; Potassium 4.6 mmol/L (3.5-5.1)
[2020-11-09 16:09] LABS: Albumin Level 2.5 gm/dl (3.4-5.0); Total Protein 5.9 gm/dl (6.4-8.2)
[2020-11-10 05:56] LABS: Estimated Average Glucose 123 mg/dl; Hemoglobin A1C 5.9 % (4.5-5.6)
--- NOTE | 2020-11-19 13:10 | History & Physical Report ---
Date of Service November 21, 2020 Assessment & Plan (1) Degenerative joint disease of left knee: I have indicated the patient for left total knee replacement. The risks, benefits and complications of surgery were explained to the patient which include but not limited to infection, acute blood loss, DVT/PE, injury to nerves, vessels, bone, soft tissue, arthrofibrosis, chronic pain, failure of the prosthesis, knee dislocation, leg length discrepancy, need for additional surgery, cardiac and pulmonary events and . The patient wished to proceed with surgery and informed consent was obtained at this time. We will plan for 81mg ASA BID post-operatively for DVT prophylaxis. Upon discharge the patient will be discharged home with home health services. Appropriate clearances by PCP were obtained. History of Present Illness Chief Complaint: Left knee pain/DJD Primary Care Provider: Yordy Mosqueda The patient is a 70 year old male who presents with complaints of severe left knee pain and DJD. The patient has failed outpatient conservative treatments to this point which included NSAIDs, IA corticosteroid injection, HEP. The kt ent's pain and limited function have progressed to the point where they severely hinder their activities of daily living and they no longer tolerate exercise programs. They are requesting to proceed with total knee replacement surgery. Allergies Allergy/AdvReac Type Severity Reaction Status Date / Time No Known Allergies Allergy Unverified 11/09/20 13:40 Home Medications Medication Instructions Recorded Confirmed Type escitalopram oxalate 10 mg PO QAM 10/27/20 10/27/20 History fiber 1 tab PO QAM 10/27/20 10/27/20 History furosemide 40 mg PO QAM 10/27/20 10/27/20 History multivitamin 1 tab PO QAM 10/27/20 10/27/20 History nadolol 20 mg PO QAM 10/27/20 10/27/20 History sennosides [Senokot] 17.2 mg PO QAM 10/27/20 10/27/20 History spironolactone 25 mg PO QAM 10/27/20 10/27/20 History Past Med/Surg History Medical History Cirrhosis of liver Follows with [facility]- stable at this time Depression Stable Esophageal varices On Nadolol Hypertension Osteoarthritis Thrombocytopenia Chronic per PCP- platelets usually around 100,000 Surgical History History of colonoscopy History of esophagogastroduodenoscopy (EGD) History of tooth extraction History of total right knee replacement Social History Smoking Status: Former smoker Cigarettes Per Day: <1/4 PPD; INTERMITTENT USE X 50 YEARS; Smoking End Date: 11/2018; Second Hand Exposure: No; Do You Dip or Chew Tobacco: No; Tobacco Cessation Education Requested by Patient: No Hx Alcohol Use: No Hx Substance Use: Yes Substance Use Type Other:: approx twice a month- had [facility] marijuana card Preferred Language: Turkish Communication Ability: Effective Marketing Instructor Required: No Beliefs That Will Affect Care: None marital status: Current Living Situation: Spouse Other Information That Helps Us Care for You: No Feels Safe at Home: Yes Safety Concerns: Feels Safe At This Time Assistive Devices: Cane and Glasses Assistive Devices Comment: readers/ caps to some teeth Review of Systems Review of Systems: All systems reviewed & are unremarkable except as noted in HPI & below Constitutional: as per Subjective / HPI Physical Exam Physical Exam: LLE NVSI +EHL/FHL/TA/GS SILT grossly, +2 DP pulse, compartments soft NT, limited painful ROM of the knee, 0-120 degrees of flexion, +crepitus. Constitutional: WD/WN, vitals as above Eyes: PERRL, conjunctivae normal, anicteric sclerae ENMT: external ear and nose normal, oropharynx normal Neck: trachea midline, no thyromegaly Respiratory: normal respiratory effort, lungs clear to auscultation Cardiovascular: RRR, no murmur, no edema Gastrointestinal (Abdomen): normal bowel sounds, soft, nontender, no hepatosplenomegaly Musculoskeletal: no cyanosis or clubbing, extremities motor strength 5/5 Skin: no rashes, warm and dry Neurologic: patellar DTR's 2+ bilat, sensation intact Psychiatric: A+Ox3, euthymic affect Lymphatic: no cervical or axillary lymphadenopathy Results & Data Results & Data ([facility]) Diagnostic Findings Multiple views of the knee demonstrates severe tricompartmental DJD with complete loss of the medial joint space. +osteophytes, +sclerosis, +subchondral cysts. Pre Admission Testing Addendum Laboratory Results 11/09/20 13:41 11/09/20 13:41 PT 13.0 Seconds (9.0-12.0) H 11/09/20 13:41 INR 1.3 (0.9-1.1) H 11/09/20 13:41 APTT 30.3 Seconds (21.0-31.0) 11/09/20 13:41 Hemoglobin A1c 5.9 % (4.5-5.6) H 11/09/20 13:41 Urine Color Dark Yellow 11/09/20 Unknown Urine Appearance Clear (Clear) 11/09/20 Unknown Urine pH 5.5 (4.5-7.5) 11/09/20 Unknown Ur Specific [place] 1.016 (1.000-1.030) 11/09/20 Unknown Urine Protein Negative (Negative) 11/09/20 Unknown Urine Glucose (UA) Negative (Negative) 11/09/20 Unknown Urine Ketones Negative (Negative) 11/09/20 Unknown Urine Nitrite Negative (Negative) 11/09/20 Unknown Ur Leukocyte Esterase Negative (Negative) 11/09/20 Unknown Urine WBC (Auto) 1-5 /hpf (0-5) 11/09/20 Unknown Urine RBC (Auto) 5-10 /hpf (0-4) H 11/09/20 Unknown U Hyaline Cast (Auto) 10-30 /lpf (0-5) H 11/09/20 Unknown U Epithel Cells (Auto) 0-5 /lpf (0-5) 11/09/20 Unknown Urine Bacteria (Auto) Negative (Negative) 11/09/20 Unknown Blood Type O Negative 11/09/20 13:41 Antibody Screen NEGATIVE 11/09/20 13:41 11/09/20 Unknown Urine Culture - Final Urine,Clean Catch No growth - less than 1,000 colonies/mL.
[~2020-11-21 10:21] MED LIST: ACETAMINOPHEN 500 MG TAB PO SCH; BUPIVACAINE 0.5 % 5 MG/1 ML PF 10ML VIAL ONE; CeleBREX 200 MG CAP PO SCH; EPINEPHrine INJ 1 MG/ML AMP ONE; FAMOTIDINE 20 MG TAB PO SCH; LR 500ML BOLUS, THEN 15ML/HR IV SCH; METOCLOPRAMIDE HCL 10 MG TABLET PO SCH; ROPIVACAINE 0.5% 5 MG/ML 30 ML VIAL ONE; ROPIVACAINE 0.5% HCL/PF 150 MG, BUPIVACAINE 0.75% MPF 20 ML, EPINEPHrine 30MG/30ML (OR ... INSTIL SCH; TRANEXAMIC ACID / 0.7% NACL 1,000 MG/100 ML BAG IV SCH; TRANEXAMIC ACID 1,000 MG **IV Pre-op IV SCH; ceFAZolin 2000MG 2,000 MG/15 ML SYR IV SCH; dexAMETHasone 4 MG TAB PO SCH
[2020-11-21] MEDS ORDERED: PROPOFOL IV EMULSION 10 MG/ML 20 ML VIAL IV ONE (10:40)
[2020-11-21] MEDS ORDERED: fentaNYL citrate 100 MCG/2 ML VIAL ONE ×2 (10:40→14:24)
[2020-11-21] MEDS ORDERED: LIDOCAINE HCL 2% 2 ML VIAL/AMP(20MG/ML) INFIL ONE (10:40)
[2020-11-21] MEDS ORDERED: MIDAZOLAM HCL 1 MG/ML 2ML VIAL ONE (10:40)
[2020-11-21] MEDS ORDERED: ONDANSETRON INJ 2 MG/ML 2 ML VIAL ONE (10:40)
--- NOTE | 2020-11-21 10:50 | History & Physical Bridge Note ---
Date of Service November 21, 2020 History & Physical Bridge Note I have examined the patient, reviewed the History & Physical and in the interval since the performance of the History & Physical I have noted the following changes of clinical significance: no changes noted
[2020-11-21] MEDS ORDERED: ORTHO JOINT ANESTHETIC ONE (11:16)
[2020-11-21] MEDS ORDERED: BACITRACIN INJ 50,000 UNIT VIAL ONE (11:17)
[2020-11-21] MEDS ORDERED: ePHEDrine sulfate 50 MG/ML AMP IV PRN (12:38)
[2020-11-21] MEDS ORDERED: ATROPINE SULFATE 0.1 MG/ML 10ML SYR IV PRN (12:38)
[2020-11-21] MEDS ORDERED: fentaNYL citrate 100 MCG/2 ML VIAL IV PRN (12:38)
[2020-11-21] MEDS ORDERED: HYDROmorphone INJ 1 MG/ML SYRINGE IV PRN (12:38)
[2020-11-21] MEDS ORDERED: ONDANSETRON INJ 2 MG/ML 2 ML VIAL IV PRN ×2 (12:38→16:46)
[2020-11-21] MEDS ORDERED: ePHEDrine sulfate 50 MG/ML SYR ONE ×2 (13:58→14:13)
[2020-11-21] MEDS ORDERED: SUCCINYLCHOLINE 100MG/5ML SYR IV ONE (13:58)
[2020-11-21] MEDS ORDERED: GLYCOPYRROLATE 0.2 MG/ML VIAL ONE (13:58)
[2020-11-21] MEDS ORDERED: ALBUMIN HUMAN 5% 12.5 GM/250 ML VIAL IV ONE (14:04)
[2020-11-21] MEDS ORDERED: PHENYLEPHRINE 100MCG/ML 5ML SYR ONE (14:13)
--- NOTE | 2020-11-21 15:11 | Post Operative Brief Note ---
Immediate Post Op Note v1 Date of Surgery November 21, 2020 Pre & Post Diagnosis Operation Date: 11/21/20 13:00 Pre-Op Diagnosis: Unilateral Primary Osteoarthritis, Left Knee Post-Op Diagnosis: Unilateral Primary Osteoarthritis, Left Knee I identified the patient and participated in the time-out.: Yes Procedure Operation Date: 11/21/20 13:00 Actual Procedures p Left Total Knee Arthroplasty(Left) - Patrick Zaragoza DO Surgeon Patrick Zaragoza DO Metal Organ Pipe Maker Norman Pope Estimated Blood Loss 55 Findings Consistent with Post-Op Diagnosis Fluids See anesthesia report Specimens Proximal tibia and distal femur bone fragments Anesthesia Type Spinal MAC Complications none Disposition Disposition: Recovery Room Overlapping Procedure I was present for: the critical portions of procedure. I was immediately available: during the entire case. Back up surgeon: was not required during procedure.
--- NOTE | 2020-11-21 15:13 | Operative Report ---
Post Operative Report Pre & Post Diagnosis Operation Date: 11/21/20 13:00 Pre-Op Diagnosis: Unilateral Primary Osteoarthritis, Left Knee Post-Op Diagnosis: Unilateral Primary Osteoarthritis, Left Knee I identified the patient and participated in the time-out.: Yes Procedure Operation Date: 11/21/20 13:00 Actual Procedures p Left Total Knee Arthroplasty(Left) - Patrick Zaragoza DO Surgeon Patrick Zaragoza DO Pin Cleaner Norman Pope Estimated Blood Loss 55 Findings Consistent with Post-Op Diagnosis Fluids See anesthesia report Specimens Proximal tibia and distal femur bone fragments Anesthesia Type Spinal MAC Complications none Disposition Disposition: Recovery Room Indications The patient is a 70-year-old female presents with long history of severe left knee tricompartmental DJD and failed outpatient conservative treatments including NSAIDs, bracing, injections and home walking/exercise program. The patient's symptoms have progressed to the point where it has been difficult to perform normal activities of daily living. I have indicated the patient for a left total knee arthroplasty, the risks and benefits and complications of the procedure include but are not limited to infection bleeding damage to bone, nerves, vessels, surrounding soft tissue, blood clots, loss of function, leg length discrepancy, dislocation, failure of the components, need for additional surgery and . The patient wished to proceed with surgery at this time and informed consent was obtained. Appropriate clearances were obtained. Description of Procedure COMPONENTS USED: Eloisa persona knee system: Femur size 8 standard, Tibia size G, Tibial articulating surface 11 PS, Patella 31 mm oval Following induction of spinal anesthesia, a tourniquet was applied to the proximal aspect of the thigh and the patient's left leg was prepped and draped in the usual sterile manner. A timeout was performed, patient identified and site south confirmed. Appropriate pre-operative IV antibiotics were given. The limb was exsanguinated with an Esmarch bandage and tourniquet was inflated to 300 mmHg. A longitudinal midline incision was made over the anterior knee. Subcutaneous tissue was sharply dissected down to fascia. Electrocautery was used for hemostasis. Next a parapatellar arthrotomy was performed. Patella was everted and the knee was flexed. A Brooks retractor was used to expose the synovium above on the anterior aspect of the femur and removed down to bone. Next, the anterior fat pad was removed to aid in visualization. The medial face of the tibia was cleared of soft tissue first with a Bovie and a strickland elevator. This tissue was retracted posteriorly using a blunt Hohmann. Next, the extra-medullary tibial cutting guide was placed to the anterior aspect of the tibia. The tibia resection level was set taking 2mm from the defective tibial condyle. Resection depth was once again confirmed with berny wing. The medial and lateral collateral ligament was protected with two Hohmann retractors. The tibia guide was removed and proximal tibial bone fragment removed utilizing straight osteotome, electrocautery and Florentin. Next, the distal femur intramedullary canal was accessed utilizing the step drill. The intramedullary distal femur cutting guide was placed into the canal and pinned into place. The distal femur was cut on the 5 degree setting. Next the cutting guide was removed and the femur was sized. Care was taken to ensure appropriate street light repairer helper all rotation and 3 degree holes were drilled. A size 8 4-in-1 cutting block was placed on the distal end of the femur and secured into place with two short headed screws. Two bent Hohmann retractors were placed to protect the medial and lateral collateral ligaments. The oscillating saw was used to cut anterior, posterior, anterior chamfer and posterior chamfer. The four and one cutting block was removed and bone fragments excised. Laminar industrial real estate agent was placed laterally and the ACL and PCL were removed followed by the medial meniscus and posterior medial osteophytes. Aquamantys was utilized for any posterior medial bleeders and Orthomix injected into the posterior medial capsule. A laminar industrial real estate agent was then placed in the medial compartment and the lateral meniscus and posterior osteophytes were removed. Aquamantys was utilized for any posterior lateral bleeders and Orthomix injected into the posterior lateral capsule. Next, drop dario and spacer block were placed with the leg in flexion and ext ension to assess alignment and flexion/extension gaps. Next, the proximal tibia was assessed and two bent Hohmans were placed medial and lateral to aid in visualization. The appropriate tibia size and rotation was selected and a size G tibial plate was pinned into place with appropriate rotation. Preparation of the tibia was completed utilizing the matching tibial drill and broach. I then turned my attention back to the distal femur in a trial femoral component was impacted into place. Appropriate femoral width was assessed and selected. Next the femur PS box cut guide was placed and cut made with the reciprocal saw and the PS box provisional placed. A trial size 10 PS tibia articular tray was placed and varus-valgus balance assessed in 0 degrees of extension and 30, 60 and 90 degrees of flexion. A final tibial articular surface size 11 PS was chosen. Assess was gained to the patella and caliper utilized to measure width. The patella reamer was utilized and remaining bone removed with oscillating saw. A size 31 mm oval patella button was selected and the patella pegs drilled. Trial patella button was placed and tracking was assessed. The knee was found to be well balanced, well aligned with excellent patella tracking. The trials were removed and final components were obtained and assembled. The knee was irrigated copiously with sterile saline solution mixed with bacitracin. Access to the proximal tibia was once again obtained utilizing to the Hohmans and the proximal tibia and distal femur were dried with lap sponges. The final components were cemented into place and all excess cement was removed. A trial tibial articular surface was placed while cemented hardened. Knee stability was once again assessed and the final component inserted. A Betadine soak was performed. After 3 minutes, the knee was once more irrigated with copious sterile saline solution with bacitracin. The knee was injected with the remaining Orthomix which includes a combination of Ropivicaine 0.5% 150mg, Bupivicaine 0.5%/Epinephrine 1:200,000 30ml, Toradol 30mg, Dexamethasone 4mg, Ketamine 10mg, Clonidine 100mcg and NSS 30ml solution. The capsulotomy was closed with #1 Vicryl followed by subcutaneous closure with 2-0 Vicryl suture and a 3-0 V-lock suture. Skin closure was performed using Prineo dressing followed by Telfa, 4 x 4s and filippo wrap. Tourniquet was deflated at 84 minutes. The patient tolerated the procedure well and was taken to the PACU in stable condition. Due to the complex nature of the procedure, the entire surgery was performed with the operational assistance of Norman Pope PA-C. The assistant activities director, under direct supervision, was involved in the actual performance of all aspects of the surgical procedure including patient positioning, hemostasis, tissue retraction, instrument management and wound closure. I attest to the content of the Intraoperative Record and any orders documented therein. Any exceptions are noted below.
--- NOTE | 2020-11-21 16:08 | XRay Report ---
TWO VIEWS LEFT KNEE CLINICAL HISTORY: Postoperative examination. FINDINGS: AP and crosstable lateral portable views of the left knee are obtained. A left knee arthrop lasty is in near anatomic alignment. There has been undersurface remodeling of the patella. No acute fracture is seen. There are expected postoperative changes around the knee including soft tissue mireya ma and subcutaneous gas. IMPRESSION: Expected postoperative changes status post left knee arthroplasty. No acute fracture is s een. ACT 112: Negative or not required by law. Electronically signed by: Trey Marrero M.D. 11/21/2020 4:07 PM
--- NOTE | 2020-11-21 16:15 | Anesthesiology Progress Note ---
Date of Service November 21, 2020 Anesthesia Post Procedure Vital Signs Vital Signs: Temp Pulse Pulse Resp BP Pulse Ox 11/21/20 16:10 57 L 16 119/70 96 11/21/20 16:00 67 19 110/68 97 11/21/20 15:50 55 L 15 113/65 97 11/21/20 15:44 36.2 C L 67 18 127/81 96 11/21/20 11:11 36.8 C 51 L 18 106/60 97 Pain Intensity Left Knee: Pain Intensity: 0 Transfer of Care Handoff Completed per policy Notes Mental Status: alert / awake / arousable Patient Amnestic to Procedure: Yes Nausea / Vomiting: adequately controlled Pain: adequately controlled Airway Patency, RR, SpO2: stable & adequate BP & HR: stable & adequate Hydration State: stable & adequate Anesthetic Complications: no major complications apparent
[2020-11-21] MEDS ORDERED: bisacodyL 10 MG SUPP PR PRN (16:46)
[2020-11-21] MEDS ORDERED: HYDROmorphone INJ 0.5 MG/0.5 ML SYR IV PRN (16:46)
[2020-11-21] MEDS ORDERED: MAGNESIUM HYDROXIDE SUSP 30 ML UDC PO PRN (16:46)
[2020-11-21] MEDS ORDERED: NALOXONE HCL 0.4 MG/1 ML VIAL/CARP IV PRN (16:46)
[2020-11-21] MEDS ORDERED: diphenhydrAMINE Capsule 25 MG CAP PO PRN (16:46)
[2020-11-21] MEDS ORDERED: oxyCODONE HCL IR 5 MG TAB (IMMEDIATE RELEASE) PO PRN (16:46)
[2020-11-21] MEDS ORDERED: METOCLOPRAMIDE HCL INJ 5 MG/ML 2 ML VIAL IV PRN (16:46)
[2020-11-21] MEDS: SODIUM CHLORIDE 0.9% 1000ML 1,000 ML IV SCH (18:07)
[2020-11-21] MEDS: KETOROLAC TROMETHAMINE 15 MG/ML VIAL IV SCH ×2 (18:07→23:10)
--- NOTE | 2020-11-21 20:16 | Orthopedic Progress Note ---
Date of Service November 21, 2020 Assessment & Plan (1) Degenerative joint disease of left knee: s/p L TKA -ancef x 24 -DVT ppx: SCDs, TEDs, 81mg ASA BID -WBAT RLE -PT/OT -PO XR demonstrates a well aligned well fixed prothesis without fracture/dislocation -am labs -DC planning Admission and Anticipated Discharge Date Admission Date: November 21, 2020 Subjective Post Operative Progress Note Patient seen sitting up in bed, comfortable, denies complaints, pain well controlled, no acute issues. Review of Systems Review of Systems: All systems reviewed & are unremarkable except as noted in HPI & below Constitutional: as per Subjective / HPI Physical Exam Physical Exam: LLE NVSI +EHL/FHL/TA/GS SILT grossly, +2 DP pulse, compartments soft NT, dressing cdi. Constitutional: WD/WN, vitals as above Results & Data ([facility]) Vital Signs (Past 12 Hours) Vital Signs Temp Pulse Pulse Resp BP BP Pulse Ox 11/21/20 19:40 36.4 C L 53 L 18 104/67 95 11/21/20 17:32 62 16 127/74 97 11/21/20 16:57 60 18 118/73 99 11/21/20 16:30 36.7 C 61 16 117/68 96 11/21/20 16:20 36.3 C L 60 16 113/68 97 11/21/20 16:10 57 L 16 119/70 96 11/21/20 16:00 67 19 110/68 97 11/21/20 15:50 55 L 15 113/65 97 11/21/20 15:44 36.2 C L 67 18 127/81 96 11/21/20 11:11 36.8 C 51 L 18 106/60 97
[2020-11-21] MEDS: SENNA 8.6 MG TAB PO SCH (20:30)
[2020-11-21] MEDS: ACETAMINOPHEN 500 MG TAB PO SCH (20:30)
[2020-11-21] MEDS: DOCUSATE SODIUM 100 MG CAP PO SCH (20:30)
[2020-11-21] MEDS: ceFAZolin 2000MG 2,000 MG/15 ML SYR IV SCH (21:49)
[2020-11-22] MEDS: SODIUM CHLORIDE 0.9% 1000ML 1,000 ML IV SCH ×2 (02:38→15:46)
[2020-11-22] MEDS: ACETAMINOPHEN 500 MG TAB PO SCH ×3 (06:14→20:11)
[2020-11-22] MEDS: ceFAZolin 2000MG 2,000 MG/15 ML SYR IV SCH (06:14)
[2020-11-22] MEDS: KETOROLAC TROMETHAMINE 15 MG/ML VIAL IV SCH ×2 (06:15→13:41)
[2020-11-22 08:16] LABS: Hematocrit (blood only) 32.2 % (42-52); Hemoglobin 11.2 g/dL (14.0-18.0); Mean Corpuscular Hemoglobin 35.4 pg (25-34); Mean Corpuscular Hgb Conc 34.8 g/dL (32-36); Mean Corpuscular Volume 101.9 fL (80-100); RDW Coefficient of Variation 15.5 % (11.5-14.5); RDW Standard Deviation 58.3 fL (36.4-46.3); Red Blood Count 3.16 M/uL (4.7-6.1); White Blood Count 5.59 K/uL (4.8-10.8)
[2020-11-22 08:37] LABS: Mean Platelet Volume 10.2 fL (7.4-10.4); Platelet Count 68 K/uL (130-400)
[2020-11-22 08:44] LABS: BUN Creatinine Ratio 21.1 (10-20); Calcium 8.2 mg/dl (8.5-10.1); Creatinine Clr Calc Pharmacy 62.1 ml/min; Est GFR (African American) 82.7; Est GFR (Non-African American) 71.4; Potassium 4.2 mmol/L (3.5-5.1)
[2020-11-22] MEDS: DOCUSATE SODIUM 100 MG CAP PO SCH ×2 (08:51→20:10)
[2020-11-22] MEDS: SPIRONOLACTONE 25 MG TAB PO SCH (08:55)
[2020-11-22] MEDS: ESCITALOPRAM OXALATE 10 MG TAB PO SCH (08:56)
[2020-11-22] MEDS: ASPIRIN 81 MG ECTAB PO SCH ×2 (08:56→20:09)
[2020-11-22] MEDS: FUROSEMIDE 40 MG TAB PO SCH (08:56)
[2020-11-22] MEDS: nadoloL 40 MG TAB PO SCH (08:57)
[2020-11-22] MEDS: MULTIVITAMIN TAB PO SCH (08:58)
[2020-11-22] MEDS ORDERED: SODIUM CHLORIDE 0.9% 1000ML 500 ML IV ONE (09:40)
--- NOTE | 2020-11-22 12:26 | Orthopedic Progress Note ---
Date of Service November 22, 2020 Assessment & Plan (1) Degenerative joint disease of left knee: s/p L TKA POD#1 -ancef x 24 -DVT ppx: SCDs, TEDs, 81mg ASA BID -WBAT RLE -PT/OT -PO XR demonstrates a well aligned well fixed prothesis without fracture/dislocation -am labs - as above, hgb 11.2 -DC planning - home with HH Orthostatic hypotension, fluid bolus provided, will recheck blood pressures in the afternoon prior to discharge. Admission and Anticipated Discharge Date Admission Date: November 21, 2020 Subjective Post Operative Progress Note Patient seen sitting up in bed, comfortable, denies complaints, pain well controlled, no acute issues. Denies F/C/N/V/SOB/CP. Patient reported mild symptoms of feeling lightheaded earlier this morning when he first got up, did have an episode of orthostatic hypotension, systolic blood pressure in the 60s, improved now and asymptomatic. Review of Systems Review of Systems: All systems reviewed & are unremarkable except as noted in HPI & below Constitutional: as per Subjective / HPI Physical Exam Physical Exam: LLE NVSI +EHL/FHL/TA/GS SILT grossly, +2 DP pulse, compartments soft NT, dressing cdi. Constitutional: WD/WN, vitals as above Results & Data ([facility]) Vital Signs (Past 12 Hours) Vital Signs Temp Pulse Resp BP Pulse Ox 11/22/20 11:26 36.5 C 53 L 15 89/48 L 94 11/22/20 10:35 54 L 92/54 L 11/22/20 07:55 36.6 C 54 L 15 94/56 L 99 11/22/20 02:28 36.6 C 58 L 16 96/60 L 98 Laboratory Results 11/22/20 11/22/20 Range/Units 07:00 07:00 WBC 5.59 (4.8-10.8) K/uL RBC 3.16 L (4.7-6.1) M/uL Hgb 11.2 L (14.0-18.0) g/dL Hct 32.2 L (42-52) % MCV 101.9 H (80-100) fL MCH 35.4 H (25-34) pg MCHC 34.8 (32-36) g/dL RDW Std Deviation 58.3 H (36.4-46.3) fL RDW Coeff of Marques 15.5 H (11.5-14.5) % Plt Count 68 L (130-400) K/uL MPV 10.2 (7.4-10.4) fL Sodium 141 (136-145) mmol/L Potassium 4.2 (3.5-5.1) mmol/L Chloride 108 H (98-107) mmol/L Carbon Dioxide 26 (21-32) mmol/L Anion Gap 7.0 (3-11) BUN 22 H (7-18) mg/dl Creatinine 1.04 (0.6-1.4) mg/dl Est Cr Clr Drug Dosing 62.1 ml/min Est GFR ( Amer) 82.7 Est GFR (Non-Af Amer) 71.4 BUN/Creatinine Ratio 21.1 H (10-20) Glucose 181 H (70-99) mg/dl Calcium 8.2 L (8.5-10.1) mg/dl
[2020-11-22] MEDS: SENNA 8.6 MG TAB PO SCH (20:09)
[2020-11-22] MEDS: CeleBREX 200 MG CAP PO SCH (20:10)
[2020-11-23] MEDS: SODIUM CHLORIDE 0.9% 1000ML 1,000 ML IV SCH (02:42)
[2020-11-23] MEDS: ACETAMINOPHEN 500 MG TAB PO SCH ×3 (05:34→20:56)
[2020-11-23 07:16] LABS: Hematocrit (blood only) 29.8 % (42-52); Hemoglobin 10.9 g/dL (14.0-18.0); Mean Corpuscular Hemoglobin 37.2 pg (25-34); Mean Corpuscular Hgb Conc 36.6 g/dL (32-36); Mean Corpuscular Volume 101.7 fL (80-100); Red Blood Count 2.93 M/uL (4.7-6.1); White Blood Count 7.08 K/uL (4.8-10.8)
[2020-11-23 07:23] LABS: Mean Platelet Volume 9.7 fL (7.4-10.4); Platelet Count 64 K/uL (130-400)
[2020-11-23 07:49] LABS: BUN Creatinine Ratio 29.5 (10-20); Calcium 8.4 mg/dl (8.5-10.1); Est GFR (African American) 85.7; Potassium 4.5 mmol/L (3.5-5.1)
--- NOTE | 2020-11-23 09:06 | Orthopedic Progress Note ---
Date of Service November 23, 2020 Assessment & Plan (1) Degenerative joint disease of left knee: s/p L TKA POD#2 -ancef x 24 -DVT ppx: SCDs, TEDs, 81mg ASA BID -WBAT RLE -PT/OT -PO XR demonstrates a well aligned well fixed prothesis without fracture/dislocation -am labs - as above, hgb 10.9 -DC planning - home with HH Orthostatic hypotension, IV fluids provided, DC pending eval with PT POD#1 -ancef x 24 -DVT ppx: SCDs, TEDs, 81mg ASA BID -WBAT RLE -PT/OT -PO XR demonstrates a well aligned well fixed prothesis without fracture/dislocation -am labs - as above, hgb 11.2 -DC planning - home with HH Orthostatic hypotension, fluid bolus provided, will recheck blood pressures in the afternoon prior to discharge. Admission and Anticipated Discharge Date Admission Date: November 21, 2020 Subjective Post Operative Progress Note Patient seen sitting up in bed, comfortable, denies complaints, pain well controlled, no acute issues. Denies F/C/N/V/SOB/CP. Lightheaded symptoms improved Review of Systems Review of Systems: All systems reviewed & are unremarkable except as noted in HPI & below Constitutional: as per Subjective / HPI Physical Exam Physical Exam: LLE NVSI +EHL/FHL/TA/GS SILT grossly, +2 DP pulse, compartments soft NT, dressing cdi. Constitutional: WD/WN, vitals as above Results & Data ([facility]) Vital Signs (Past 12 Hours) Vital Signs Temp Pulse Resp BP BP Pulse Ox 11/23/20 07:29 36.4 C L 57 L 16 101/55 L 98 11/22/20 23:30 36.7 C 60 16 91/46 L 90/43 L 97 Laboratory Results 11/23/20 11/23/20 Range/Units 06:53 06:53 WBC 7.08 (4.8-10.8) K/uL RBC 2.93 L (4.7-6.1) M/uL Hgb 10.9 L (14.0-18.0) g/dL Hct 29.8 L (42-52) % MCV 101.7 H (80-100) fL MCH 37.2 H (25-34) pg MCHC 36.6 H (32-36) g/dL RDW Std Deviation 60.0 H (36.4-46.3) fL RDW Coeff of Marques 16.0 H (11.5-14.5) % Plt Count 64 L (130-400) K/uL MPV 9.7 (7.4-10.4) fL Sodium 144 (136-145) mmol/L Potassium 4.5 (3.5-5.1) mmol/L Chloride 112 H (98-107) mmol/L Carbon Dioxide 28 (21-32) mmol/L Anion Gap 4.0 (3-11) BUN 30 H (7-18) mg/dl Creatinine 1.01 (0.6-1.4) mg/dl Est Cr Clr Drug Dosing 64.0 ml/min Est GFR ( Amer) 85.7 Est GFR (Non-Af Amer) 74.0 BUN/Creatinine Ratio 29.5 H (10-20) Glucose 163 H (70-99) mg/dl Calcium 8.4 L (8.5-10.1) mg/dl
[2020-11-23] MEDS: ASPIRIN 81 MG ECTAB PO SCH ×2 (09:47→20:55)
[2020-11-23] MEDS: CeleBREX 200 MG CAP PO SCH (09:47)
[2020-11-23] MEDS: DOCUSATE SODIUM 100 MG CAP PO SCH ×2 (09:48→20:57)
[2020-11-23] MEDS: ESCITALOPRAM OXALATE 10 MG TAB PO SCH (09:48)
[2020-11-23] MEDS: FUROSEMIDE 40 MG TAB PO SCH (09:52)
[2020-11-23] MEDS: nadoloL 40 MG TAB PO SCH (09:52)
[2020-11-23] MEDS: SPIRONOLACTONE 25 MG TAB PO SCH (09:52)
[2020-11-23 11:52] LABS: Albumin Level 2.2 gm/dl (3.4-5.0); Bilirubin Direct 0.5 mg/dl (0-0.2); Bilirubin,Total 1.3 mg/dl (0.2-1); Total Protein 4.8 gm/dl (6.4-8.2)
--- NOTE | 2020-11-23 12:09 | Hospitalist Consultation ---
Date of Consultation November 23, 2020 Assessment & Plan (1) Acute hypotension: Suspect related to malnutrition, cirrhosis, antihypertensives and postoperative state. Currently appears euvolemic exam. Orthostatic hypotension with syncope after given Lasix and spironolactone postoperatively yesterday. By history I suspect he has orthostasis at home and is over-treated with antihypertensives likely due to his worsening malnutrition and weight loss without adjustment in his medications. Agree with holding diuretics and beta-aggie this morning. The patient has minimal ascites on exam with last paracentesis 2 years ago on diagnosis of alcoholic liver cirrhosis. Nadolol has been held for the past 2 days which is appropriate and is unlikely he needs this on discharge given current bradycardia. Likely will be able to continue just the Spironolactone on discharge however would opt to keep the patient overnight to make full recommendations tomorrow morning pending stability in his blood pressure. Discontinue IV fluids. For current and future acute hypotensive episodes will give albumin infusion. (2) Thrombocytopenia: Secondary to liver cirrhosis (3) Esophageal varices: Secondary to liver cirrhosis however unable to tolerate Nadolol. (4) Cirrhosis of liver: LFTs appear to be improving postoperatively. Recommend close follow-up with his PCP or director agricultural services on discharge to ensure ascites is not returning. Daily weights, low-sodium diet. Recommend holding Celebrex (unless previously approved by his director agricultural services) and reducing acetaminophen use to 2 g total daily. (5) Depression: Continue Lexapro 10 mg p.o. daily (6) QT prolongation: Avoid additional medications can prolong QT interval such as ondansetron. (7) DVT prophylaxis: Consider anticoagulation rather than antiplatelets given thrombocytopenia however will defer this to his primary orthopedic team. History of Present Illness Reason for Consultation: Hypotension Attending Physician: Patrick Zaragoza DO History of Present Illness Salomón Andrade is a 70-year-old male who presents presents for elective left knee total arthroplasty performed by Dr. Zaragoza on November 21 (2 days ago). No complications with the operation with 55 mL estimated blood loss. The patient w as restarted on his usual liver cirrhosis medications including nadolol, furosemide and spironolactone on postoperative day 1. He refused the nadolol due to low blood pressure however after taking the spironolactone and furosemide he developed orthostatic hypotension with associated syncope on ambulation and systolic blood pressure. Today all antihypertensives have been appropriately held. The patient does note he has been having problems with low blood pressure at home on his current antihypertensive /liver cirrhosis regimen. His PCP recently cut back on the nadolol from 20 to 10 mg. The patient has limited knowledge of his medications however and recommended calling his however she did not spanish moss picker on the 3 times that I have tried. Today he current blood pressure is 85/58. The patient is in his chair talking to me and says he feels fine at this time. He denies any chest pain, shortness of breath, dizziness or lightheadedness. He reports having alcoholic liver cirrhosis. Diagnosed 2 years ago at which time he quit smoking and drinking alcohol. At this time he received paracentesis has not required any paracentesis since this time. Unknown whether the Celebrex is being cleared by his director agricultural services. Allergies Allergy/AdvReac Type Severity Reaction Status Date / Time No Known Allergies Allergy Unverified 11/21/20 10:59 Home Medications Medication Instructions Recorded Confirmed Type escitalopram oxalate [Lexapro] 10 mg PO QAM 10/27/20 11/21/20 History fiber 1 tab PO QAM 10/27/20 11/21/20 History furosemide 40 mg PO QAM 10/27/20 11/21/20 History multivitamin 1 tab PO QAM 10/27/20 11/21/20 History nadolol [Corgard] 10 mg PO QAM 10/27/20 11/21/20 History sennosides [Senokot] 17.2 mg PO QAM 10/27/20 11/21/20 History spironolactone [Aldactone] 25 mg PO QAM 10/27/20 11/21/20 History acetaminophen 1,000 mg PO Q8 PRN #90 tab 11/21/20 Rx aspirin 81 mg PO BID PRN #56 tab 11/21/20 Rx celecoxib [Celebrex] 200 mg PO BID PRN #28 cap 11/21/20 Rx oxycodone 5 mg PO Q6H PRN #30 tab MDD 4 11/21/20 Rx sennosides [Senokot] 17.2 mg PO HS PRN #28 tab 11/21/20 Rx Patient History Medical History Cirrhosis of liver Follows with [facility]- stable at this time COVID-19 vaccine administered First Dose 09/14/20 Second Dose 10/12/20 [place] Depression Stable Esophageal varices On Nadolol Hypertension Osteoarthritis Thrombocytopenia Chronic per PCP- platelets usually around 100,000 Surgical History History of colonoscopy History of esophagogastroduodenoscopy (EGD) History of tooth extraction History of total right knee replacement Social History Smoking Status: Former smoker Cigarettes Per Day: <1/4 PPD; INTERMITTENT USE X 50 YEARS; Smoking End Date: 11/2018; Second Hand Exposure: No; Do You Dip or Chew Tobacco: No; Tobacco Cessation Education Requested by Patient: No Hx Alcohol Use: No Hx Substance Use: Yes Substance Use Type Other:: approx twice a month- had medical marijuana card Preferred Language: Kinyarwanda Communication Ability: Effective Pharmacy Graduate Intern Required: No Beliefs That Will Affect Care: None marital status: Current Living Situation: Spouse Other Information That Helps Us Care for You: No Feels Safe at Home: Yes Safety Concerns: Feels Safe At This Time Assistive Devices: Walker Assistive Devices Comment: readers/ caps to some teeth Review of Systems Review of Systems: All systems reviewed & are unremarkable except as noted in HPI & below Physical Exam Constitutional: well developed Eyes: + anicteric sclerae; normal pupil size Neck: trachea midline, no thyromegaly Respiratory: normal respiratory effort, lungs clear to auscultation Cardiovascular: Rate/Rhythm: regular rate and regular rhythm Heart Sounds: no murmur Vessels: no JVD Extremities: + pedal edema (Trace ankles) Gastrointestinal (Abdomen): Inspection/Auscultation: normal bowel sounds; abdomen not distended Percussion/Palpation: abdomen soft; abdomen nontender, no guarding and abdomen not rigid Skin: no rashes, warm and dry Neurologic: moves all extremities and awake; not confused Results & Data Results & Data ([facility]) Vital Signs (Past 12 Hours) Vital Signs Temp Pulse Resp BP BP Pulse Ox 11/23/20 11:15 51 L 85/58 L 11/23/20 09:10 61 96/58 L 11/23/20 07:29 36.4 C L 57 L 16 101/55 L 98 ECG Indication: bradycardia and syncope Rate (beats per minute): 50 Rhythm: sinus bradycardia Findings: + prolonged QT (QTC 519 ms); no acute ischemic change Comparison ECG Date: from (November 09, 2020) Change: no significant change PG Care Time/CCT Total # of Minutes Spent Total Time Spent with Patient: Total time spent is greater than 50% in coordination of care (as documented) at patient's floor/unit and/or counseling patient: Coding Level of Care Code 08343 Inpt Consult Level 4 Diagnoses Acute hypotension I95.9 Thrombocytopenia D69.6 Esophageal varices I85.10 Esophageal varices type: secondary Esophageal varices bleeding: without bleeding Cirrhosis of liver K70.30 Hepatic cirrhosis type: alcoholic cirrhosis Ascites presence: without ascites Depression F32.9 QT prolongation R94.31 DVT prophylaxis Z29.9 (1) Esophageal varices Esophageal varices type: secondary Esophageal varices bleeding: without bleeding Qualified Code(s): I85.10 - Secondary esophageal varices without bleeding (2) Cirrhosis of liver Hepatic cirrhosis type: alcoholic cirrhosis Ascites presence: without ascites Qualified Code(s): K70.30 - Alcoholic cirrhosis of liver without ascites
[2020-11-23] MEDS: MULTIVITAMIN TAB PO SCH (12:45)
[2020-11-23] MEDS: ALBUMIN 25% 12.5 GM/50 ML VIAL IV SCH ×2 (12:46→13:56)
[2020-11-23] MEDS: SENNA 8.6 MG TAB PO SCH (20:56)
[2020-11-24 06:07] LABS: Hematocrit (blood only) 29.2 % (42-52); Hemoglobin 10.3 g/dL (14.0-18.0); Mean Corpuscular Hemoglobin 35.9 pg (25-34); Mean Corpuscular Hgb Conc 35.3 g/dL (32-36); Mean Corpuscular Volume 101.7 fL (80-100); RDW Standard Deviation 59.2 fL (36.4-46.3); Red Blood Count 2.87 M/uL (4.7-6.1); White Blood Count 4.98 K/uL (4.8-10.8)
[2020-11-24 06:11] LABS: Mean Platelet Volume 9.6 fL (7.4-10.4); Platelet Count 58 K/uL (130-400)
[2020-11-24 06:42] LABS: BUN Creatinine Ratio 39.1 (10-20); Calcium 8.3 mg/dl (8.5-10.1); Est GFR (African American) 105.6; Est GFR (Non-African American) 91.1; Potassium 4.6 mmol/L (3.5-5.1)
[2020-11-24] MEDS: SPIRONOLACTONE 25 MG TAB PO SCH (07:45)
[2020-11-24] MEDS: DOCUSATE SODIUM 100 MG CAP PO SCH ×2 (07:46→20:52)
[2020-11-24] MEDS: ESCITALOPRAM OXALATE 10 MG TAB PO SCH (07:46)
[2020-11-24] MEDS: MULTIVITAMIN TAB PO SCH (07:47)
[2020-11-24] MEDS: ASPIRIN 81 MG ECTAB PO SCH ×2 (07:47→20:51)
[2020-11-24] MEDS: ACETAMINOPHEN 500 MG TAB PO SCH ×2 (07:47→20:53)
--- NOTE | 2020-11-24 09:25 | Orthopedic Progress Note ---
Date of Service November 24, 2020 Assessment & Plan (1) Degenerative joint disease of left knee: s/p L TKA POD#3 -Discussed erythema with Dr. Zaragoza. Start Keflex -DVT ppx: SCDs, TEDs, 81mg ASA BID -WBAT RLE -PT/OT -am labs - as noted -DC planning - home with HH Orthostatic hypotension - as per Med Service Admission and Anticipated Discharge Date Admission Date: November 21, 2020 Supervising Physician Co-Signing Physician Notes Patient seen and examined. Agree with GELY Pope's note as above. He is currently resting comfortably and says he feels "great". He has been ambulating; he has been having trouble with orthostatic hypotension, but it seems to be progressively better every day. H&H remains stable. He has a small serous blister all along the medial aspect of the incision, but no evidence of infection. Hopefully can discharge home soon as his orthostatic hypotension improves over time. Subjective POD 3 Pt sitting up at bedside starting his PT session. Pressures were better this AM. Currently sitting at bedside his BP was 97/62. No sx's. I returned after the session was completed. PT noted BP drop into the 60's with small amount of ambulation in the room. Pt did not feel like he was passing out. No complaints currently. Pain controlled. Review of Systems Review of Systems: All systems reviewed & are unremarkable except as noted in HPI & below Constitutional: as per Subjective / HPI Physical Exam Physical Exam: Knee incision intact with a noted area of erythema at the medial patellar area. No drainage noted. Small blisters noted. Remainder of incision area benign. Able to go through ROM without difficulty. Calves, soft, NT. NV intact. Results & Data ([facility]) Vital Signs (Past 12 Hours) Vital Signs Temp Pulse Resp BP Pulse Ox 11/24/20 06:38 36.7 C 56 L 16 123/66 98 11/23/20 22:21 36.8 C 56 L 14 108/59 L 96 Laboratory Results Laboratory Results WBC 4.98 K/uL (4.8-10.8) 11/24/20 05:31 RBC 2.87 M/uL (4.7-6.1) L 11/24/20 05:31 Hgb 10.3 g/dL (14.0-18.0) L 11/24/20 05:31 Hct 29.2 % (42-52) L 11/24/20 05:31 MCV 101.7 fL (80-100) H 11/24/20 05:31 MCH 35.9 pg (25-34) H 11/24/20 05:31 MCHC 35.3 g/dL (32-36) 11/24/20 05:31 RDW Std Deviation 59.2 fL (36.4-46.3) H 11/24/20 05:31 RDW Coeff of [place]ques 16.0 % (11.5-14.5) H 11/24/20 05:31 Plt Count 58 K/uL (130-400) L 11/24/20 05:31 MPV 9.6 fL (7.4-10.4) 11/24/20 05:31 Immature Gran % (Auto) 0.2 % 11/09/20 13:41 Neut % (Auto) 52.7 % 11/09/20 13:41 Lymph % (Auto) 37.4 % 11/09/20 13:41 [place] % (Auto) 7.1 % 11/09/20 13:41 Eos % (Auto) 2.2 % 11/09/20 13:41 Baso % (Auto) 0.4 % 11/09/20 13:41 Neut # (Auto) 2.36 K/uL (1.4-6.5) 11/09/20 13:41 Lymph # (Auto) 1.68 K/uL (1.2-3.4) 11/09/20 13:41 [place] # (Auto) 0.32 K/uL (0.11-0.59) 11/09/20 13:41 Eos # (Auto) 0.10 K/uL (0-0.5) 11/09/20 13:41 Baso # (Auto) 0.02 K/uL (0-0.2) 11/09/20 13:41 Immature Gran # (Auto) 0.01 K/uL (0.00-0.02) 11/09/20 13:41 PT 13.0 Seconds (9.0-12.0) H 11/09/20 13:41 INR 1.3 (0.9-1.1) H 11/09/20 13:41 APTT 30.3 Seconds (21.0-31.0) 11/09/20 13:41 PTT Ratio 1.2 11/09/20 13:41 Sodium 143 mmol/L (136-145) 11/24/20 05:31 Potassium 4.6 mmol/L (3.5-5.1) 11/24/20 05:31 Chloride 112 mmol/L (98-107) H 11/24/20 05:31 Carbon Dioxide 28 mmol/L (21-32) 11/24/20 05:31 Anion Gap 3.0 (3-11) 11/24/20 05:31 BUN 30 mg/dl (7-18) H 11/24/20 05:31 Creatinine 0.76 mg/dl (0.6-1.4) 11/24/20 05:31 Est Cr Clr Drug Dosing 85.0 ml/min 11/24/20 05:31 Est GFR ( Amer) 105.6 11/24/20 05:31 Est GFR (Non-Af Amer) 91.1 11/24/20 05:31 BUN/Creatinine Ratio 39.1 (10-20) H 11/24/20 05:31 Glucose 145 mg/dl (70-99) H 11/24/20 05:31 Estimat Average Glucose 123 mg/dl 11/09/20 13:41 Hemoglobin A1c 5.9 % (4.5-5.6) H 11/09/20 13:41 Calcium 8.3 mg/dl (8.5-10.1) L 11/24/20 05:31 Total Bilirubin 1.3 mg/dl (0.2-1) H 11/23/20 06:53 Direct Bilirubin 0.5 mg/dl (0-0.2) H 11/23/20 06:53 AST 42 U/L (15-37) H 11/23/20 06:53 ALT 25 U/L (12-78) 11/23/20 06:53 Alkaline Phosphatase 108 U/L (45-117) 11/23/20 06:53 Total Protein 4.8 gm/dl (6.4-8.2) L 11/23/20 06:53 Albumin 2.2 gm/dl (3.4-5.0) L 11/23/20 06:53 Urine Color Dark Yellow 11/09/20 Unknown Urine Appearance Clear (Clear) 11/09/20 Unknown Urine pH 5.5 (4.5-7.5) 11/09/20 Unknown Ur Specific [place] 1.016 (1.000-1.030) 11/09/20 Unknown Urine Protein Negative (Negative) 11/09/20 Unknown Urine Glucose (UA) Negative (Negative) 11/09/20 Unknown Urine Ketones Negative (Negative) 11/09/20 Unknown Urine Blood Trace (Negative) H 11/09/20 Unknown Urine Nitrite Negative (Negative) 11/09/20 Unknown Urine Bilirubin Negative (Negative) 11/09/20 Unknown Urine Urobilinogen Negative (Negative) 11/09/20 Unknown Ur Leukocyte Esterase Negative (Negative) 11/09/20 Unknown Urine WBC (Auto) 1-5 /hpf (0-5) 11/09/20 Unknown Urine RBC (Auto) 5-10 /hpf (0-4) H 11/09/20 Unknown U Hyaline Cast (Auto) 10-30 /lpf (0-5) H 11/09/20 Unknown U Epithel Cells (Auto) 0-5 /lpf (0-5) 11/09/20 Unknown Urine Bacteria (Auto) Negative (Negative) 11/09/20 Unknown Blood Type O Negative 11/09/20 13:41 Antibody Screen NEGATIVE 11/09/20 13:41
--- NOTE | 2020-11-24 09:38 | Hospitalist Progress Note ---
Date of Service November 24, 2020 Assessment & Plan (1) Acute hypotension: Suspect related to malnutrition, cirrhosis, antihypertensives and postoperative state. Currently appears euvolemic exam. Orthostatic hypotension with syncope after given Lasix and spironolactone postoperatively yesterday. By history I suspect he has orthostasis at home and is over-treated with antihypertensives likely due to his worsening malnutrition and weight loss without adjustment in his medications. Agree with holding diuretics and beta-aggie this morning. The patient has minimal ascites on exam with last paracentesis 2 years ago on diagnosis of alcoholic liver cirrhosis. Nadolol has been held for the past 2 days which is appropriate and is unlikely he needs this on discharge given current bradycardia. Likely will be able to continue just the Spironolactone on discharge however would opt to keep the patient overnight to make full recommendations tomorrow morning pending stability in his blood pressure. 11/24 IVF 66/44 with +orthostatics Albumin x 1 given IVF NSS @125cc/hr for 500cc total Would re-address spironolactone in AM -- possible decrease dose vs. discontinuing Continues to hold daily lasix -- would only resume prn at d/c for edema give dehydration/hypotension Continue to monitor (2) Thrombocytopenia: Secondary to liver cirrhosis (3) Esophageal varices: Secondary to liver cirrhosis however unable to tolerate Nadolol. (4) Cirrhosis of liver: LFTs appear to be improving postoperatively. Recommend close follow-up with his PCP or special education director on discharge to ensure ascites is not returning. Daily weights, low-sodium diet. Recommend holding Celebrex (unless previously approved by his special education director) and reducing acetaminophen use to 2 g total daily. LFTs continue to be elevated -- Tbili 1.7, direct 0.8, ast 45, alt 27, alk phos 139 Suspect some dehydration, no abd pain IVF as above and repeat labs in AM (5) Depression: Continue Lexapro 10 mg p.o. daily (6) QT prolongation: Avoid additional medications can prolong QT interval such as ondansetron. (7) DVT prophylaxis: POD #1 s/p LEFT TKA PT/OT/pain management per primary service Added miralax to bowel regimen as he takes laxative daily at home h/h with drop -- acute blood loss anemia from surgery as well as dilutional from IVF Consider anticoagulation rather than antiplatelets given thrombocytopenia however will defer this to his primary orthopedic team. Keflex added today for erythema around incision/blisters --> continue to monitor Dispo: continued inpatient stay Hospitalist service will follow along Admission and Anticipated Discharge Date Admission Date: November 21, 2020 Subjective Patient evaluated this morning. Doing well. Did get lightheaded working with therapy and had +orthostatics. Discussed albumin and some IVF and will continue to monitor and determine if spironolactone should be continued vs decreased dose. He attributes drop due to pain and first time being out of bed. Some chills but no fever -- states he is always cold. Does have some erythema around incision with blisters -- he was unaware until ortho told him this morning. Never had issues with lasix/allergies in the past. Passing gas but no BM since admission -- takes daily laxative at home and continuing to work on bowel regimen. No fever, chest pain, shortness of breath, abdominal pain, nausea or vomiting. Review of Systems Review of Systems: All systems reviewed & are unremarkable except as noted in HPI & below Physical Exam Constitutional: WD/WN, vitals as above well developed; no acute distress Eyes: PERRL, conjunctivae normal, anicteric sclerae + anicteric sclerae; normal pupil size ENMT: Mouth: + dentition abnormality (partial lower denture) Mallampati Class: III Neck: trachea midline, no thyromegaly Respiratory: normal respiratory effort; no respiratory distress Auscultation: lungs clear to auscultation bilaterally; no wheezes Cardiovascular: RRR, no murmur, no edema Rate/Rhythm: regular rate, regular rhythm and + bradycardic Heart Sounds: no murmur Vessels: no JVD and no carotid bruit Extremities: + pedal edema (Trace ankles) Gastrointestinal (Abdomen): normal bowel sounds, soft, nontender, no hepatosplenomegaly Inspection/Auscultation: normal bowel sounds; abdomen not distended Percussion/Palpation: abdomen soft; abdomen nontender, no guarding and abdomen not rigid Musculoskeletal: no cyanosis or clubbing, extremities motor strength 5/5 Dressing to knee c/d/i small blister to medial aspect of incision with surrounding erythema minimally tender to palpation around erythema NVI calves non-tender to palpation pulses palpable bilaterally Skin: no rashes, warm and dry Neurologic: patellar DTR's 2+ bilat, sensation intact moves all extremities and awake; not confused Psychiatric: A+Ox3, euthymic affect Lymphatic: no cervical or axillary lymphadenopathy Results & Data Results & Data ([facility]) Vital Signs (Past 12 Hours) Vital Signs Temp Pulse Resp BP Pulse Ox 11/24/20 06:38 36.7 C 56 L 16 123/66 98 11/23/20 22:21 36.8 C 56 L 14 108/59 L 96 Laboratory Results 11/24/20 11/24/20 11/23/20 Range/Units 05:31 05:31 06:53 WBC 4.98 (4.8-10.8) K/uL RBC 2.87 L (4.7-6.1) M/uL Hgb 10.3 L (14.0-18.0) g/dL Hct 29.2 L (42-52) % MCV 101.7 H (80-100) fL MCH 35.9 H (25-34) pg MCHC 35.3 (32-36) g/dL RDW Std Deviation 59.2 H (36.4-46.3) fL RDW Coeff of [place] 16.0 H (11.5-14.5) % Plt Count 58 L (130-400) K/uL MPV 9.6 (7.4-10.4) fL Sodium 143 (136-145) mmol/L Potassium 4.6 (3.5-5.1) mmol/L Chloride 112 H (98-107) mmol/L Carbon Dioxide 28 (21-32) mmol/L Anion Gap 3.0 (3-11) BUN 30 H (7-18) mg/dl Creatinine 0.76 (0.6-1.4) mg/dl Est Cr Clr Drug Dosing 85.0 ml/min Est GFR ( Amer) 105.6 Est GFR (Non-Af Amer) 91.1 BUN/Creatinine Ratio 39.1 H (10-20) Glucose 145 H (70-99) mg/dl Calcium 8.3 L (8.5-10.1) mg/dl Total Bilirubin 1.3 H (0.2-1) mg/dl Direct Bilirubin 0.5 H (0-0.2) mg/dl AST 42 H (15-37) U/L ALT 25 (12-78) U/L Alkaline Phosphatase 108 (45-117) U/L Total Protein 4.8 L (6.4-8.2) gm/dl Albumin 2.2 L (3.4-5.0) gm/dl PG Care Time/CCT Total # of Minutes Spent Total Time Spent with Patient: Total time spent is greater than 50% in coordination of care (as documented) at patient's floor/unit and/or counseling patient: Coding Level of Care Code 21817 Subseq Hosp Care Lvl 3 Diagnoses Acute hypotension I95.9 Thrombocytopenia D69.6 Esophageal varices I85.10 Esophageal varices type: secondary Esophageal varices bleeding: without bleeding Cirrhosis of liver K70.30 Hepatic cirrhosis type: alcoholic cirrhosis Ascites presence: without ascites Depression F32.9 QT prolongation R94.31 DVT prophylaxis Z29.9 (1) Esophageal varices Esophageal varices type: secondary Esophageal varices bleeding: without bleeding Qualified Code(s): I85.10 - Secondary esophageal varices without bleeding (2) Cirrhosis of liver Hepatic cirrhosis type: alcoholic cirrhosis Ascites presence: without ascites Qualified Code(s): K70.30 - Alcoholic cirrhosis of liver without ascites
[2020-11-24] MEDS ORDERED: SODIUM CHLORIDE 0.9% 500 ML IV SCH (09:45)
[2020-11-24] MEDS ORDERED: ALBUMIN 5% 250 ML IV ONE (10:00)
[2020-11-24 10:52] LABS: Albumin Level 2.1 gm/dl (3.4-5.0); Bilirubin Direct 0.8 mg/dl (0-0.2); Bilirubin,Total 1.7 mg/dl (0.2-1); Total Protein 5.2 gm/dl (6.4-8.2)
[2020-11-24 10:55] LABS: Folate (Folic Acid) > 20.00 ng/ml (>5.38); Vitamin B12 1989 pg/ml (193-986)
[2020-11-24] MEDS: cephALEXin 500 MG CAP PO SCH ×3 (13:14→20:52)
[2020-11-24] MEDS ORDERED: SODIUM CHLORIDE 0.9% 1000ML 500 ML IV ONE (15:04)
--- NOTE | 2020-11-24 20:18 | Electrocardiogram Report ---
Test Reason : Blood Pressure : / mmHG Vent. Rate : 050 BPM Atrial Rate : 050 BPM P-R Int : 170 ms QRS Dur : 088 ms QT Int : 570 ms P-R-T Axes : 040 033 070 degrees QTc Int : 519 ms Sinus bradycardia Prolonged QT Abnormal ECG When compared with ECG of 09-NOV-2020 13:35, No significant change was found Confirmed by Trell Umanzor ([id number]) on 11/24/2020 8:18:39 PM Referred By: Patrick Zaragoza Confirmed By:Trell Umanzor
[2020-11-24] MEDS: SENNA 8.6 MG TAB PO SCH (20:52)
[2020-11-25 06:55] LABS: Hematocrit (blood only) 27.7 % (42-52); Hemoglobin 9.6 g/dL (14.0-18.0); Mean Corpuscular Hemoglobin 35.7 pg (25-34); Mean Corpuscular Hgb Conc 34.7 g/dL (32-36); RDW Coefficient of Variation 16.5 % (11.5-14.5); RDW Standard Deviation 61.8 fL (36.4-46.3); Red Blood Count 2.69 M/uL (4.7-6.1); White Blood Count 3.97 K/uL (4.8-10.8)
[2020-11-25 07:07] LABS: Mean Platelet Volume 9.6 fL (7.4-10.4); Platelet Count 55 K/uL (130-400)
[2020-11-25 07:22] LABS: Eosinophils # (auto) 0.18 K/uL (0-0.5); Eosinophils % (auto) 4.5 %; Immature Granulocytes # (auto) 0.02 K/uL (0.00-0.02); Immature Granulocytes % (auto) 0.5 %; Lymphocytes # (auto) 1.45 K/uL (1.2-3.4); Lymphocytes % (auto) 36.5 %; Monocytes # (auto) 0.43 K/uL (0.11-0.59); Monocytes % (auto) 10.8 %; Neutrophils # (auto) 1.89 K/uL (1.4-6.5); Neutrophils % (auto) 47.7 %
[2020-11-25 07:36] LABS: Albumin Level 2.1 gm/dl (3.4-5.0); BUN Creatinine Ratio 33.6 (10-20); Bilirubin Direct 0.7 mg/dl (0-0.2); Calcium 8.2 mg/dl (8.5-10.1); Creatinine Clr Calc Pharmacy 88.5 ml/min; Est GFR (African American) 107.4; Est GFR (Non-African American) 92.7; Potassium 4.4 mmol/L (3.5-5.1)
[2020-11-25 07:39] LABS: Bilirubin,Total 1.7 mg/dl (0.2-1); Total Protein 4.6 gm/dl (6.4-8.2)
[2020-11-25] MEDS: ESCITALOPRAM OXALATE 10 MG TAB PO SCH (08:09)
[2020-11-25] MEDS: MULTIVITAMIN TAB PO SCH (08:09)
[2020-11-25] MEDS: DOCUSATE SODIUM 100 MG CAP PO SCH (08:09)
[2020-11-25] MEDS: cephALEXin 500 MG CAP PO SCH ×2 (08:09→12:30)
[2020-11-25] MEDS: ASPIRIN 81 MG ECTAB PO SCH (08:09)
[2020-11-25] MEDS: ACETAMINOPHEN 500 MG TAB PO SCH (08:10)
[2020-11-25] MEDS ORDERED: POLYETHYLENE (MIRALAX) 17 GM PACK PO SCH (09:00)
--- NOTE | 2020-11-25 09:09 | Orthopedic Progress Note ---
Date of Service November 25, 2020 Assessment & Plan (1) Degenerative joint disease of left knee: s/p L TKA POD#3 -Discussed erythema with Dr. Zaragoza. Continue Keflex -DVT ppx: SCDs, TEDs, 81mg ASA BID -WBAT RLE -PT/OT -am labs - as noted -DC planning - home with HH Orthostatic hypotension - as per Med Service Admission and Anticipated Discharge Date Admission Date: November 24, 2020 Subjective Postop day 4 Patient is sitting in his chair at the bedside. No complaints this morning. States he feels well. Denies shortness of breath, chest pain, lightheadedness. Physical Exam Physical Exam: Incision is intact and dry. Erythema remains at the medial aspect of the patella but looks better today. Blisters have been opened up and the skin has been cleaned. Calves are soft nontender. Neurovascular intact. Toes are mobile. Results & Data ([facility]) Vital Signs (Past 12 Hours) Vital Signs Temp Pulse Resp BP Pulse Ox 11/25/20 07:30 36.6 C 55 L 17 114/66 91 Laboratory Results Laboratory Results WBC 3.97 K/uL (4.8-10.8) L 11/25/20 06:39 RBC 2.69 M/uL (4.7-6.1) L 11/25/20 06:39 Hgb 9.6 g/dL (14.0-18.0) L 11/25/20 06:39 Hct 27.7 % (42-52) L 11/25/20 06:39 MCV 103.0 fL (80-100) H 11/25/20 06:39 MCH 35.7 pg (25-34) H 11/25/20 06:39 MCHC 34.7 g/dL (32-36) 11/25/20 06:39 RDW Std Deviation 61.8 fL (36.4-46.3) H 11/25/20 06:39 RDW Coeff of [place] 16.5 % (11.5-14.5) H 11/25/20 06:39 Plt Count 55 K/uL (130-400) L 11/25/20 06:39 MPV 9.6 fL (7.4-10.4) 11/25/20 06:39 Immature Gran % (Auto) 0.5 % 11/25/20 06:39 Neut % (Auto) 47.7 % 11/25/20 06:39 Lymph % (Auto) 36.5 % 11/25/20 06:39 [place] % (Auto) 10.8 % 11/25/20 06:39 Eos % (Auto) 4.5 % 11/25/20 06:39 Baso % (Auto) 0.0 % 11/25/20 06:39 Neut # (Auto) 1.89 K/uL (1.4-6.5) 11/25/20 06:39 Lymph # (Auto) 1.45 K/uL (1.2-3.4) 11/25/20 06:39 [place] # (Auto) 0.43 K/uL (0.11-0.59) 11/25/20 06:39 Eos # (Auto) 0.18 K/uL (0-0.5) 11/25/20 06:39 Baso # (Auto) 0.00 K/uL (0-0.2) 11/25/20 06:39 Immature Gran # (Auto) 0.02 K/uL (0.00-0.02) 11/25/20 06:39 PT 13.0 Seconds (9.0-12.0) H 11/09/20 13:41 INR 1.3 (0.9-1.1) H 11/09/20 13:41 APTT 30.3 Seconds (21.0-31.0) 11/09/20 13:41 PTT Ratio 1.2 11/09/20 13:41 Sodium 143 mmol/L (136-145) 11/25/20 06:39 Potassium 4.4 mmol/L (3.5-5.1) 11/25/20 06:39 Chloride 112 mmol/L (98-107) H 11/25/20 06:39 Carbon Dioxide 26 mmol/L (21-32) 11/25/20 06:39 Anion Gap 4.0 (3-11) 11/25/20 06:39 BUN 25 mg/dl (7-18) H 11/25/20 06:39 Creatinine 0.73 mg/dl (0.6-1.4) 11/25/20 06:39 Est Cr Clr Drug Dosing 88.5 ml/min 11/25/20 06:39 Est GFR ( Amer) 107.4 11/25/20 06:39 Est GFR (Non-Af Amer) 92.7 11/25/20 06:39 BUN/Creatinine Ratio 33.6 (10-20) H 11/25/20 06:39 Glucose 115 mg/dl (70-99) H 11/25/20 06:39 Estimat Average Glucose 123 mg/dl 11/09/20 13:41 Hemoglobin A1c 5.9 % (4.5-5.6) H 11/09/20 13:41 Calcium 8.2 mg/dl (8.5-10.1) L 11/25/20 06:39 Total Bilirubin 1.7 mg/dl (0.2-1) H 11/25/20 06:39 Direct Bilirubin 0.7 mg/dl (0-0.2) H 11/25/20 06:39 AST 43 U/L (15-37) H 11/25/20 06:39 ALT 24 U/L (12-78) 11/25/20 06:39 Alkaline Phosphatase 127 U/L (45-117) H 11/25/20 06:39 Total Protein 4.6 gm/dl (6.4-8.2) L 11/25/20 06:39 Albumin 2.1 gm/dl (3.4-5.0) L 11/25/20 06:39 Vitamin B12 1989 pg/ml (193-986) H 11/24/20 09:47 Folate > 20.00 ng/ml (>5.38) 11/24/20 09:47 Urine Color Dark Yellow 11/09/20 Unknown Urine Appearance Clear (Clear) 11/09/20 Unknown Urine pH 5.5 (4.5-7.5) 11/09/20 Unknown Ur Specific [place] 1.016 (1.000-1.030) 11/09/20 Unknown Urine Protein Negative (Negative) 11/09/20 Unknown Urine Glucose (UA) Negative (Negative) 11/09/20 Unknown Urine Ketones Negative (Negative) 11/09/20 Unknown Urine Blood Trace (Negative) H 11/09/20 Unknown Urine Nitrite Negative (Negative) 11/09/20 Unknown Urine Bilirubin Negative (Negative) 11/09/20 Unknown Urine Urobilinogen Negative (Negative) 11/09/20 Unknown Ur Leukocyte Esterase Negative (Negative) 11/09/20 Unknown Urine WBC (Auto) 1-5 /hpf (0-5) 11/09/20 Unknown Urine RBC (Auto) 5-10 /hpf (0-4) H 11/09/20 Unknown U Hyaline Cast (Auto) 10-30 /lpf (0-5) H 11/09/20 Unknown U Epithel Cells (Auto) 0-5 /lpf (0-5) 11/09/20 Unknown Urine Bacteria (Auto) Negative (Negative) 11/09/20 Unknown Blood Type O Negative 11/09/20 13:41 Antibody Screen NEGATIVE 11/09/20 13:41
--- NOTE | 2020-11-25 11:18 | Hospitalist Progress Note ---
Date of Service November 25, 2020 Assessment & Plan (1) Acute hypotension: (1) Acute hypotension: Suspect related to malnutrition, cirrhosis, antihypertensives and postoperative state. - recommend continuing to hold Nadolol, Spironolactone and Furosemide on discharge - f/u closely with PCP early next week to re-assess BP/orthostatics and re-start meds as tolerated (2) Thrombocytopenia: Secondary to liver cirrhosis (3) Esophageal varices: Secondary to liver cirrhosis however unable to tolerate Nadolol. (4) Cirrhosis of liver: LFTs appear to be improving postoperatively. Recommend close follow-up with his PCP or nutrition educator on discharge to ensure ascites is not returning. Daily weights, low-sodium diet. Recommend holding Celebrex (unless previously approved by his nutrition educator) and reducing acetaminophen use to 2 g total daily. LFTs continue to be elevated -- Tbili 1.7, direct 0.8, ast 45, alt 27, alk phos 139 - f/u as outpatient (5) Depression: Continue Lexapro 10 mg p.o. daily (6) QT prolongation: Avoid additional medications can prolong QT interval such as ondansetron. Admission and Anticipated Discharge Date Admission Date: November 24, 2020 Supervising Physician Co-Signing Physician Notes I personally examined the patient and verified all myles points of history and exam, discussed case, and agree with decision making with Dr Patricio Feels fine, very much wants to go home. Has had orthostatic drops in blood pressurebut no symptoms today. Feels like he would be safe at home. Vitals noted, in general he is awake and alert pleasant no distress. HEENT normocephalic atraumatic mucous membranes moist. Breathing unlabored no accessory muscle use good effort. Orthostatic hypotensionnow asymptomatic. Not unexpected given his baseline disease states, and recent surgery. Agree with holding home meds for now. We discussed the main acute risk would be accumulating asciteshe notes that is happened before, notes that getting a paracentesis does not feel like much of a big deal to him. We discussed safety with orthostasisstanding for a minute before going anywhere. Discussed holding off on meds for a few days, ideally being able to follow-up with his PCP on Saturday (he is scheduled for )noting that if his blood pressures have gotten better it would be okay to resume his meds by then. If is not able to get in sooner, we recommended calling in with home blood pressure readings from the weekend. Either way short term hold his home meds, he understands the risk involved, safety measures to protect against orthostatic syncope, and close outpatient follow-up next week. Possibly basic metabolic panel depending on his status. He had a good understanding of this and appears stable for home with the above- noted conditions. Subjective No acute events overnight. Participated with PT this morning - SBP initial dropped to 60s but very quickly increased to 100s-110s. Patient continues to be completely asymptomatic during bouts of orthostatic hypotension. This morning reports feeling well overall. Post-op pain adequately controlled. Denies fever/chills, chest pain, palpitations, SOB, N/V, abdominal pain. Review of Systems Review of Systems: Pertinent positives and negatives mentioned in HPI Physical Exam Physical Exam: General: A&Ox3. NAD. Cooperative. HEENT: Atraumatic, normocephalic. Pulm: CTAB A&P. -wheezes, -rales, -rhonchi. Symmetrical chest rise. No increase work of breathing. No respiratory distress. Cardiac: RRR, -mrg. Radial pulses intact and symmetrical. Abdominal: soft, non-tender, non-distended, BS x 4 Results & Data Results & Data ([facility]) Vital Signs (Past 12 Hours) Vital Signs Temp Pulse Resp BP Pulse Ox 11/25/20 07:30 36.6 C 55 L 17 114/66 91 Resident Activity Tracking Resident Involvement: Resident Care Provided Care Provided: Adult Hospital Medicine
--- NOTE | 2020-11-25 17:55 | Discharge Summary ---
Date of Service November 25, 2020 Admission HPI Per Admitting Provider The patient is a 70 year old male who presents with complaints of severe left knee pain and DJD. The patient has failed outpatient conservative treatments to this point which included NSAIDs, IA corticosteroid injection, HEP. The patient's pain and limited function have progressed to the point where they severely hinder their activities of daily living and they no longer tolerate exercise programs. They are requesting to proceed with total knee replacement surgery. Principal Diagnosis Left total knee replacement Discharge Exam LLE NVSI +EHL/FHL/TA/GS SILT grossly, +2 DP pulse, compartments soft NT, dressing cdi. Blisters medial to incision next to Dermabond Prineo Constitutional WD/WN, vitals as above Discharge Data Allergies Allergy/AdvReac Type Severity Reaction Status Date / Time No Known Allergies Allergy Unverified 11/21/20 10:59 Consultations 11/23/20 10:55 Consult Hospitalist Routine Procedures Performed Operation Date: 11/21/20 13:00 Actual Procedures p Left Total Knee Arthroplasty(Left) - Patrick Zaragoza DO Ordered Studies 11/21/20 05:00 US - OR guided needle placemen Routine Hospital Course (1) Degenerative joint disease of left knee: The patient is a 70 -year-old male who presents with long standing history of severe left knee DJD and failed outpatient conservative treatments. The patient's symptoms have progressed to the point where it has been difficult to perform even normal activities of daily living. I indicated the patient for a left total knee arthroplasty, the risks, benefits and complications of the procedure include but not limited to infection, bleeding, damage to bone, nerves, vessels, surrounding soft tissue, may develop blood clots, loss of function, leg length discrepancy, dislocation, failure of the components, loosening of the components, the need for additional surgery and . The patient wished to proceed with surgery at this time and informed consent was obtained. Hospital Course: On 11/21/20 the patient was taken to the operating room, adequate anesthesia administered and underwent a left total knee arthroplasty. The patient tolerated the procedure well and was taken to the PACU in stable condition. Post-operatively the patient was started on a DVT ppx medication and given appropriate IV antibiotics. Consults were placed to physical therapy, occupational therapy and case management. On POD#1, the patient did well overnight and their pain was well controlled. Labs were drawn and the Hgb was 11.2. The patient developed orthostatic hypotension with PT, systolic in ani 60s with one episode of syncope. Medical hospitalist consult placed, IV fluids provided. On POD#2, The patient did well overnight, BP improved however patient continued to have orthostatic hypotension with PT and ambulation without syncope. Held BP medications, medicine recs appreciated, continued to monitor. Dressings were changed at this time and the incision was clean, dry and intact. On POD#3, the patient continued to do well and BP improving. Patient continued to have orthostatic hypotension with PT. Labs drawn, hgb 10.3. On POD#4 the patents orthostatic hypotension continued to improve and he progressed with PT. Labs were drawn and hgb was 9.6. The patient was deemed stable by the orthopedic team and consultants to be discharged home with on 11/25/. Discharge Instructions: Upon discharge the patient may weight bear as tolerates through their operative extremity. They were instructed to keep the incision clean and dry at all times. The patient may shower but should not submerge the incision, avoid bathing, pools and hot tubs. The patient was given a script for pain medication and should take as instructed. The patient was given a script for DVT ppx 81mg ASA BID and should take as directed. The patient was instructed to not drive or travel for long distances until cleared to do so. If the patient develops any symptoms of fevers, chills, nausea, vomiting, increased redness, swelling, pain or drainage from the surgical site, they should notify the office and/or proceed to the nearest emergency room. The patient should follow up in 10-14 days after surgery for their routine post-operative follow-up appointment and should call the office, to confirm the date and time. Total Time Total Time Spent Total Time Spent (In Minutes): >60 Discharge Plan Discharge Items Patient Disposition: Home - Home Health Services Reason For Visit: Unilateral Primary Osteoarthritis, Left Knee Discharge Diagnosis: Left total hip replacement Condition on Discharge: Good Activity: Per Instructions section Lifting: Wait until after follow-up appointment Bathing: Keep incision dry Bathing Comment: No bathing, pools or hot tubs. Sexual Activity: Wait until after follow-up appointment Exercise/Sports: Wait until after follow-up appointment Driving/Machine Use: No Driving. Weightbearing: Full weightbearing Non-emergency contact: Primary Care Provider and Surgeon Call non-emergency contact if: you have any medication questions, your symptoms worsen, your pain is not controlled, your pain is worsening, your pain is unusual for you, your pain is concerning for you, you have a fever, your temperature is above 101, your wound has increased redness, your wound has increased drainage and your wound pain has increased Follow-up/Referrals: Yordy Mosqueda M.D. [Primary Care Provider] - Diet: Regular Addtl Attending Provider Instructions: ACTIVITY RECOMMENDATIONS: SELF CARE INSTRUCTIONS AFTER TOTAL KNEE REPLACEMENT A. You may need to continue a physical therapy program after discharge from the hospital. There are several options available to you. Your doctor will assist you in selecting the best one for you. 1. An out-patient facility 2 to 3 times a week for therapy or home therapy. 2. Continue working on all exercises taught to you in the hospital. Your goals should be to increase bending of your knee to 90 degrees and beyond and to fully straighten your knee. B. You may progress at your own pace from walking with a walker or crutches to a cane; then to no assistive devices. C. Make walking a part of your daily routine. Be up as much as comfortable with rest periods throughout the day. Rest with leg elevation is very important. Use the ice wrap frequently for the first 3-4 weeks. D. There are no restrictions on activities. You may ride in a car, shop, participate in sliver lapper and all social activities. E. Wear the long elastic stockings (THI hose) 20 hours a day for 2 weeks after surgery. They can be removed several times a day for laundering and for a bath. F. You may shower, no tub baths until cleared by your doctor. SPECIAL CARE INSTRUCTIONS: VERY IMPORTANT TO READ AND REVIEW A. There are a few signs you need to watch for after you are home. Call [facility] if you notice any of the followin. Increased severe knee pain. Some pain is expected especially when you exercise. 2. Increased swelling in your leg or knee; pain or swelling of the calf muscle in either lower leg. 3. Any fluid drainage from the incision. 4. Shortness of breath or chest pain. B. Please call [facility] at if you have any concerns or questions about your operation or recovery. The doctor or his nurse will return your call promptly. C. You must take antibiotics before dental work, bladder, bowel or other surgery. Your doctor will provide you with a permanent care to carry describing this precaution. IMPORTANT: * REMEMBER TO TAKE ASPIRIN, 81 MG, TWICE DAILY FOR 4 WEEKS UNLESS OTHERWISE DIRECTED. THIS IS YOUR BLOOD THINNER. * HIGH RISK PATIENTS MAY BE PRESCRIBED A STRONGER BLOOD THINNER. THIS WILL BE PROVIDED AT DISCHARGE. * CALL IF INCREASED PAIN, REDNESS, DRAINAGE OR FEVER GREATER THAT 101. * WEAR THI HOSE 20 HOURS PER DAY FOR 2 WEEKS. *DERMABOND Prineo- This is a mesh tape dressing that is covered with glue. It should remain in place until the incision is properly healed, usually 10-14 days. This dressing is designed to naturally slough off. You may trim the excess mesh tape as it peels off. Incision may be briefly wet in a shower. Dry immediately by blotting with a clean, dry towel. Do not bath or swim until instructed by your doctor. Do not scratch, rub, or pick at the dressing. Do not apply any topical ointments or lotions until dressing is completely removed and/or instructed by your doctor. There may be a small piece of suture material at one end of your incision. Do not pull or trim this. If it is bothersome or catching on clothing, you may cover it with a band-aid. If an island dressing is covering your incision you may remove and leave uncovered if dry. Care taken to keep glue mesh intact when removing either dressing. FOLLOW UP VISIT: If appointment is not already scheduled: Please call [facility] to make a follow-up appointment for 2 weeks after your surgery at . FOLLOW UP WITH YOUR PRIMARY CARE PROVIDER IN 1 WEEK FOR BLOOD PRESSURE CHECK AND TO DISCUSS YOUR MEDICATIONS. Addtl General Superintendent Provider Instructions: Orthostatic Hypotension: - do not take Lasix, Nadolol or Spirnoloactone - be slow and cautious with change from seated to standing positions - follow up with your PCP in 1 week for further management of your blood pressure Pending Studies at Discharge: No Stand-Alone Forms: My [facility], Smoking Cessation Medications and DC Order Prescriptions: New celecoxib [Celebrex] 200 mg Capsule 200 mg PO BID PRN (Reason: pain/inflammation) Qty: 28 RF: 0 aspirin 81 mg Tablet,Delayed Release (Dr/Ec) 81 mg PO BID PRN (Reason: DVT Prophylaxis) Qty: 56 RF: 0 acetaminophen 500 mg Tablet 1,000 mg PO Q8 PRN (Reason: pain/fever) Qty: 90 RF: 0 oxycodone 5 mg Tablet 5 mg PO Q6H MDD 4 PRN (Reason: pain) Qty: 30 RF: 0 sennosides [Senokot] 8.6 mg Tablet 17.2 mg PO HS PRN (Reason: constipation) Qty: 28 RF: 0 cefadroxil 500 mg capsule 500 mg PO Q12H Qty: 28 RF: 0 Continued multivitamin Tablet 1 tab PO QAM RF: 0 escitalopram oxalate [Lexapro] 10 mg Tablet 10 mg PO QAM RF: 0 fiber Tablet,Chewable 1 tab PO QAM RF: 0 Discontinued furosemide 40 mg Tablet 40 mg PO QAM RF: 0 spironolactone [Aldactone] 25 mg Tablet 25 mg PO QAM RF: 0 nadolol [Corgard] 20 mg Tablet 10 mg PO QAM RF: 0 sennosides [Senokot] 8.6 mg tablet 17.2 mg PO QAM RF: 0 Discharge Orders: Discharge Order (Routine); Ordered 11/25/20 Ordered By: Norman Kong/Other Patient Handouts: Hypotension Dc Admission Data Admit Date/Time: 11/24/20 11:33 Attending Provider: Patrick Zaragoza Admit Provider: Patrick Zaragoza Primary Care Provider: Yordy Mosqueda Other Providers: Mani Donohue Other Interventions: Discharge Summary Assessment (RN) Last Done: 11/25/20 11:24
--- NOTE | 2020-11-25 18:52 | Billing Data ---
Date of Service November 25, 2020 Coding Level of Care Code 67629 Subseq Hosp Care Lvl 2
== END 2020-11-25 14:21 | disposition home health service (06) | DRG 470 ==
LOC: ASU 10:21 → 3E 10:21